=== PATIENT | male | born 1970 | race Caucasian/White ===

== ENCOUNTER → 2016-10-06 | Outpatient (CLI) | payer BC, OTHER ==
[~2016-10-06] VITALS: Ht 180.3 cm; Wt 101.2 kg
[~2016-10-06] MED LIST: ADULT LOW DOSE81 MG PO; AMITRIPTYLINE H10 M1 PO; CHANTIX1 MG PO; ESCITALOPRAM OX20 MG; FISH OIL 1,0001 EAC5 PO; FORTESTA60 GM TD; INDOCIN SR75 MG PO; LYRICA100 MG PO; LYRICA150 MG PO; LYRICA300 MG PO; METHADONE HCL5 MG PO; MULTIVITAMINS PO; NEURONTIN 300300 M1 PO; NEURONTIN600 MG PO; OXYCONTIN; OXYCONTIN PO; OXYCONTIN20 M1 PO; PERCOCET 10-321 EACH; PERCOCET 10-321 EACH PO; PREDNISOLONE 5 M5 M1 PO; TEGRETOL XR100 MG PO
--- NOTE | ~2016-10-06 | HPC ---
[facility] [place] [employer] [address] PAIN MANAGEMENT CONSULTATION Name: MELLO LERMA Room #: REG [facility] M..#: [id number] Admission: 10/06/16 Attend Phys: Ketan Olivier MD Discharge: Date of : 70 Report #: [id number] THIS REPORT FOR: //name// CC: Dee Olivier DATE OF SERVICE: 10/06/2016 DATE OF REGISTRATION: 10/06/2016. Followup visit for intractable headaches and management of high risk medication. This is a followup visit for the patient who is on time for his medication. He was evaluated last on 09/12/2016. He is here today for renewal of medication. He reports that he is doing okay with his medication, continuing to work, pain score is a 5. He has been able to keep at bay the severe brain freeze headaches. We again discussed the interesting phenomena of sound triggering rage. I have asked him to discuss this further with Dr. Day with a followup appointment in the next few days. We have reviewed the CDC guidelines. We have talked about the upper limits of opioids at 90 morphine milligram equivalents. It is well above that at this time, but is willing to make adjustments and we made a couple of suggestions either long or short acting. We are going to reduce his long acting OxyContin from 30 mg b.i.d. to 20 mg b.i.d. and he will continue at the 10/325 oxycodone tablets taken as needed for breakthrough pain around the clock. This reduction will take him from 100 mg of oxycodone to 80 mg, which is a morphine milligram equivalent of 120. This is a substantial over 20% reduction in his MME closer towards the CDC guidelines of 90. He understands that that is our target. We will try to do so and allow him to continue to have him control of his headaches and remain functional at work. I discussed his urine drug screen which was ordered today as well and the terms of that agreement and 2 months of prescriptions were provided for him. We will try and reduce his medication a bit further at the next visit. By: [id number] Ketan Olivier MD /nt
[2016-10-06 13:45] VITALS: BP 126/78
== END ==
LOC: PAIN 07:13
DX: R51 Headache (principal); Z87.891 Personal history of nicotine dependence

== ENCOUNTER → 2016-12-12 | Outpatient (CLI) | payer BC, OTHER ==
[~2016-12-12] VITALS: Ht 180.3 cm; Wt 100.7 kg
[~2016-12-12] MED LIST changes: +OXYCONTIN15 MG PO
--- NOTE | ~2016-12-12 | HPC ---
[facility] [place] [address] PAIN MANAGEMENT CONSULTATION Name: MELLO LERMA Room #: REG [facility] MUmesh.#: [id number] Admission: 12/12/16 Attend Phys: Ketan Olivier MD Discharge: Date of : 70 Report #: [id number] THIS REPORT FOR: //name// CC: Dee Olivier DATE OF SERVICE: 12/12/2016 Followup visit for chronic intractable headaches and management of high risk opioid medication. The patient returns to pain clinic today and continues to do well as we slowly taper his oxycodone. At last visit, we tapered his OxyContin 30 mg b.i.d. to 20 mg b.i.d. and he saw no significant change in his pain. We are going reduce it again today from 20 to 15 mg b.i.d. He also uses breakthrough oxycodone 10/325, which he has been taking now for several years, almost on a schedule. We have been leaving that alone as we taper his long acting drug. We will 50% of his long-acting medication. We will reduce his daily dose of oxycodone by 30 mg over the 6 months. We will continue to try and taper below the CDC guideline of 90 morphine milligram equivalents. With today's prescription, he will be at 105 morphine milligram equivalents. He has noticed that he actually has more energy and is appreciating the ability to reduce his dose of medication slowly or under controlled circumstances. 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 He says, he works up to 50 hours per week. 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 I have encouraged him to continue efforts to quit smoking. He is down to 1/2 pack per day. MEDICATIONS: Reviewed and reconciled, which included in addition to his 105 mg of oxycodone, gabapentin 300 mg 5 times daily, Lexapro 20 mg daily, multivitamins and aspirin. Indomethacin has also been taken, prescribed by primary service. Side effects have been reviewed in the past and reviewed once again today. PHYSICAL EXAMINATION: GENERAL: He is pleasant, alert and oriented, without signs of overmedication, anxiety, depression or anger. VITAL SIGNS: Blood pressure 151/82, heart rate 75, respirations 14. BMI is 31. No obvious signs of his pain generators. Pain intensity is 5/10 today. IMPRESSION: [facility] [address] [place] [address] PAIN MANAGEMENT CONSULTATION Name: MELLO LERMA [id number] Admission: 12/12/16 Attend Phys: Ketan Olivier MD Discharge: Date of : 70 Report #: [id number] 1. 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 2. Management of high risk medications. 3. History of cerebral infarct. PLAN: I renewed his medications at the reduced dose of OxyContin 15 mg b.i.d. and oxycodone 10/325 one tablet 4 times daily and a followup visit is scheduled in 3 months. We will continue to try and taper further at next visit. By: [id number] Ketan Olivier MD /nt
[2016-12-12 08:06] VITALS: BP 151/82
== END | disposition home or self-care (01) ==
LOC: PAIN 06:05
DX: G44.51 Hemicrania continua (principal); F11.20 Opioid dependence, uncomplicated; G89.29 Other chronic pain; F17.210 Nicotine dependence, cigarettes, uncomplicated; Z86.73 Personal history of transient ischemic attack (TIA), and cerebral infarction without residual deficits

== ENCOUNTER → 2017-03-06 | Outpatient (CLI) | payer BC, OTHER | LOC: PAIN 07:05 | DX: R51 Headache (principal); Z86.73 Personal history of transient ischemic attack (TIA), and cerebral infarction without residual deficits ==

== ENCOUNTER → 2017-08-17 | Outpatient (CLI) | payer BC, OTHER ==
[~2017-08-17] VITALS: Ht 180.3 cm; Wt 95.7 kg
[~2017-08-17] MED LIST changes: +ENDOCET 10-3251 EACH PO; +ESCITALOPRAM OX20 MG PO; +INDOMETHACIN SR75 M1 PO; +NARCAN 1MG/ML1 MG/M1 IM; +XTAMPZA ER36 MG PO
--- NOTE | ~2017-08-17 | HPC ---
[facility] [place] [address] PAIN MANAGEMENT CONSULTATION Name: MELLO LERMA Room #: REG [facility] M..#: [id number] Admission: 08/17/17 Attend Phys: Ketan Olivier MD Discharge: Date of : 70 Report #: [id number] THIS REPORT FOR: //name// CC: Dee Olivier DATE OF SERVICE: 08/17/2017 REASON FOR VISIT: Followup visit for severe hemicrania continua, intractable headache. HISTORY OF PRESENT ILLNESS: This is a followup visit for the patient who has now been seeing at the request of Dr. Day for over a year. I prescribed his medications under terms of written opioid agreement. He is currently receiving oxycodone 10/325 six tablets daily, which equates to a morphine equivalency of 19. This is at the top of the CDC guideline. We did focus significantly on function in our clinic. He works 2 jobs, is continuing to work up 60 hours a week. He has 2 children. He is continuing to try and balance his home activities with work and his chronic pain. His pain is unusual and is triggered by sound. He is unable to even go to the movie with his family. He tried to go to the [employer], which was a definite mistake given the high volume and that would be expected in a movie of that sort. Within a short time after entering the movie theater, he had to go back up to the corner and wait until it came back out. I have encouraged him to quit smoking, which I think is contributing to his pain. He continues to do so, however. He denies any significant side effects from his medications. He has been on time for his medications at each visit. He has shown no lost prescriptions. He has had a recent drug screen performed on 12/12/2016, which was appropriate for all medications including gabapentin and citalopram, which were provided for him by Dr. Bean. He has asked me to prescribe this for him now, so that I can then have control of all of his pain medications. He also takes indomethacin 75 mg 3 times daily and he is now down to 1 daily. We talked extensively today about the multiple side effects of nonsteroidal anti-inflammatory drugs particularly indomethacin and needs to be cautious. Follow up with his primary care physician for evaluation of renal function. He has had no dyspepsia. No evidence of GI distress associated with his indomethacin use. Gabapentin is useful. He takes it up to 1500 mg a day in combination with his other medicines. PHYSICAL EXAMINATION: [facility] [address] [place] [address] PAIN MANAGEMENT CONSULTATION Name: MELLO LERMA [id number] Admission: 08/17/17 Attend Phys: Ketan Olivier MD Discharge: Date of : 70 Report #: [id number] GENERAL: On physical exam, he is pleasant, alert and oriented, shows no signs of overmedication. His affect is always a bit dour. VITAL SIGNS: Pupils are equal, round and react to light. EOMs are intact. He has poor oral hygiene. He has occipital tenderness and tenderness also in the temporal region. IMPRESSION: 1. Chronic intractable headache. Hemicrania continua diagnosed by Dr. Senthil Bean following a cerebrovascular accident. 2. Management of opioid medications under opioid agreement and high risk medication agreement. PLAN: I provided him with his medication, oxycodone 10/325 six tablets daily. We will follow up in the pain clinic in 3 months. I have also renewed today for him escitalopram 20 mg 1 tablet daily; gabapentin 300 mg five tablets daily, 1 in the morning, 1 at noon and 3 at bedtime to aid with sleep and indomethacin SR 75 mg 1 tablet daily with precautions regarding GI, renal and cardiac side effects. Followup visit planned in 3 months. <ELECTRONICALLY SIGNED> By: Ketan Olivier MD 09/06/17 1640 [id number] Ketan Olivier MD /nt
[2017-08-17 13:57] VITALS: BP 121/76
== END ==
LOC: PAIN 06:57
DX: G43.919 Migraine, unspecified, intractable, without status migrainosus (principal); G44.51 Hemicrania continua; F11.90 Opioid use, unspecified, uncomplicated

== ENCOUNTER → 2018-06-07 | Outpatient (CLI) | payer BC, OTHER ==
[~2018-06-07] VITALS: Ht 180.3 cm; Wt 93.3 kg
[~2018-06-07] MED LIST changes: +INDOMETHACIN SR75 MG PO
--- NOTE | ~2018-06-07 | HPC ---
[facility] [address] [place] [address] PAIN MANAGEMENT CONSULTATION Name: MELLO LERMA Room #: REG [facility].#: [id number] Admission: 06/07/18 Attend Phys: Dena Conn Discharge: Date of : 70 Report #: [id number] THIS REPORT FOR: //name// CC: Dena VALERIO Physician staff DATE OF SERVICE: 06/07/2018 REASON FOR THE VISIT: For followup visit for his chronic intractable headaches, hemicrania continua and management of high risk opioid medications. HISTORY OF PRESENT ILLNESS: The patient returns today to the pain clinic for a refill of his opioid medication. 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 He tells me that his pain score is a 7/10, worse with noise, better with his medication, dark environment, quietness. His pain is located on the right side of his head, feels like a brain freeze; that is how he describes it. The patient denies constipation or daytime somnolence. He would like a refill of his current medications. ALLERGIES: PENICILLIN. CURRENT LIST OF MEDICATIONS: Indomethacin 75 twice a day, oxycodone 10/325 up to 6 tablets a day, gabapentin 300 mg 1 in the morning, 1 midday, 3 at night; escitalopram 20 mg daily, aspirin 81 mg daily, and a multivitamin. PQRS: 1. The patient denies osteoarthritis or rheumatoid arthritis. 2. Height is 5 feet 11 inches, weight 205, BMI is 28.7. 3. Vital signs: Blood pressure 124/82, pulse is 68, respirations 16, oxygen sat is 100%. 4. Pain score is 7. 5. The patient denies dizziness, does not need help walking or standing. He has not fallen in the last 3 months. 6. He has a blood thinner of aspirin. No history of hypertension. 7. His opioid therapy greater than 6 weeks, therefore an opioid signed contract is on the chart. His risk assessment tool is low and his functional assessment is . His recreational drug use, he denies. He does smoke tobacco every day and does not drink alcohol. We did check the [facility] prescription monitoring system. The patient is filling appropriately from Dr. Olivier with no aberrant behavior noted. He is filling at one pharmacy. There is a recent drug screen on the chart that was appropriate. The patient tells me he does safeguard his medications. PHYSICAL EXAMINATION: [facility] [address] [place] [address] PAIN MANAGEMENT CONSULTATION Name: MELLO LERMA Room #: REG [facility].#: [id number] Admission: 06/07/18 Attend Phys: Dena Conn Discharge: Date of : 70 Report #: [id number] GENERAL: This is a well-developed, well-nourished, appears his stated age gentleman. He is alert and oriented. His affect is appropriate. HEENT: He has no discomfort or tenderness at the temporal area or occipital, feels that it feels like a brain freeze inside when it occurs. It is not necessarily constant all the time. His pupils are equal, round, reactive to light. Extraocular movements are intact. NECK: No JVD or adenopathy. IMPRESSION: 1. Chronic intractable headache, history of cerebrovascular accident in 1998 with longstanding hemicrania continua. 2. Management of high risk medication under the terms of opioid agreement. PLAN: 1. The patient is here for refill of his medication today. We did discuss a letter that was received from the insurance company regarding his indomethacin use and his history of CVA. The patient tells me that this is working fine for him and helping with relieving his pain. I told him that there is a risk of patients that have had past CVAs and taking nonsteroidal anti-inflammatories. We did discuss taking the medication every other day or decreasing to a lower dose. I am sure the risk would still be there even at a lower dose. The patient tells me he wishes to continue, understands the risk, he will try to take it every other day from now on because he does have great benefit from that medication. 2. We discussed his oxycodone 10/325. The patient thinks it is very beneficial. We have tried long acting narcotics and insurance would not pay for them, so we have switched him back to his oxycodone 10/325. The patient gets good relief from his 6 tablets a day. Script was given for 180 for today and again in 4 weeks. 3. The patient falls within 90 MME that the [facility] has set, therefore he is being seen on 2-month intervals from now on. The patient understands this plan of care and will make an appointment for 2 months. Scripts also given today, gabapentin 300 mg, the patient takes one in the morning, one midday and 3 at night, quantity 450, which is a 90-day supply with one additional refill; indomethacin 75 mg 1 daily, quantity 90 with one additional refill given. He did not need his antidepressant refilled today, it has refills. The patient will be seen in 2 months' time. The patient was seen today in collaboration with Dr. Ketan Olivier. <ELECTRONICALLY SIGNED> By: Dena Conn 06/08/18 1004 [id number] [id number] Dena mcmahan
[2018-06-07 09:18] VITALS: BP 124/82
== END ==
LOC: PAIN 08:47
DX: G44.51 Hemicrania continua (principal); Z79.891 Long term (current) use of opiate analgesic; Z86.73 Personal history of transient ischemic attack (TIA), and cerebral infarction without residual deficits

== ENCOUNTER → 2018-07-26 | Outpatient (CLI) | payer BC, OTHER ==
[~2018-07-26] VITALS: Ht 180.3 cm; Wt 94.1 kg
[~2018-07-26] MED LIST changes: +CHANTIX0.5 MG PO
[2018-07-26 10:06] VITALS: BP 126/80
--- NOTE | 2018-07-26 10:07 | NUR ---
Pain Clinic Assessment: 1. History of Osteoarthritis: History of Rheumatoid Arthritis: 2. Height: 5 ft. 11 in. 180.3 cm. Weight: 207.4 lb. oz. 94.076 kg. Patient's BMI: 28.9 3. Vital Signs: BP: 126/80 Pulse: 65 Resp: 18 Temp: 02 Sat: 99 ECG Mon: 4. Pain Intensity: 6 5. Fall Risk: Dizziness: N Needs help standing or walking: N Fallen in the last 3 months: N Fall risk comments: 6. Patient on Blood Thinner: None 7. History of Hypertension: N 8. Opioid Therapy greater than 6 weeks: Y Opiate Contract Signed: 10/06/16 9. Risk Assessment Tool Provided: Opioid Risk Tool 10. Functional Assessment Tool: 29 11. Recreational Drug Use: Never Drug Type: Tobacco Use: Former Smoker Tobacco Type: Amount or Packs/day: How Many Years: Alcohol Use: No Frequency: Quant:
--- NOTE | 2018-07-26 16:05 | HPC ---
[facility] [address] [place] [address] [place] [address] PAIN MANAGEMENT CONSULTATION Name: MELLO LERMA Room #: REG CLJose Cruz [facility].#: [id number] Admission: 07/26/18 Attend Phys: Dena Conn Discharge: Date of : 70 Report #: [id number] THIS REPORT FOR: //name// CC: Dena Conn TRAVIS VALERIO DATE OF SERVICE: 07/26/2018 CHIEF COMPLAINT: Chronic intractable headaches. HISTORY OF PRESENT ILLNESS: The patient returns to the pain clinic today for refill of his opioid medications. He tells me that the pain medicines have been helpful in controlling his chronic headaches and head pain. He does tell me that he had a left arm tennis elbow repair 2 weeks ago and his arm is in a sling today for that. He said he has no pain though in his arm. He is doing physical therapy and home therapy from that surgery and he will return to work on this Monday. He denies any constipation and any daytime sleepiness. He just needs a refill of his oxycodone and no other refills are due today of his other medications. ALLERGIES: PENICILLIN. CURRENT LIST OF MEDICATIONS: Chantix daily, gabapentin 300 mg 5 pills a day, indomethacin 75 mg p.r.n., oxycodone 10/325 every 4 hours, Narcan syringe as needed, escitalopram 20 mg daily, aspirin 81 mg daily and multivitamin daily. PQRS: 1. He denies history of osteoarthritis or rheumatoid arthritis. 2. Height is 5 feet 11 inches, weight is 207 and BMI is 28.9. 3. Vital signs: Blood pressure 120/80, pulse is 65, respirations 18 and oxygen sat is 99. 4. Pain score 6/10. 5. Fall risk. Denies dizziness, does not need help walking or standing, has not fallen in the last 3 months. 6. He is not on any blood thinners and denies hypertension medicines. 7. Opioid therapy is greater than 6 weeks; therefore, an opioid signed contract is on the chart. 8. Risk assessment tool is low. His functional assessment is . 9. Recreational drug use, he denies. He is a former smoker, on Chantix currently and denies any alcohol use. We checked the prescription monitoring system. He is slightly early for his appointment today, but we know his prior authorization for his medications is about to , trying to get to fill before then. He did filll tramadol from his surgeon for his elbow surgery; otherwise, every other medication is appropriate from our doctors. There is a recent drug screen on the chart and [address] [address] PAIN MANAGEMENT CONSULTATION Name: MELLO LERMA Room #: REG [facility] Powell#: [id number] Admission: 07/26/18 Attend Phys: Dena Conn Discharge: Date of : 70 Report #: [id number] his MME per the CDC guidelines is 75. Therefore, he is seen every 2 months in the clinic. PHYSICAL EXAMINATION: GENERAL: This is a well-developed, well-nourished gentleman that appears his stated age. He is alert and orientated and his affect is appropriate. HEENT: He has no tenderness presently in his temporal area or occipital area, does complain of brain freeze when he does complain of pain. His pupils are reactive to light. Normocephalic and atraumatic. Mucous membranes are moist and hearing is adequate. NECK: Without JVD or adenopathy. MUSCULOSKELETAL: His left arm is in a sling today from his recent surgery. Able to move hands without difficulty. Lower extremity strength judged to be 5/5 bilateral in all major muscle groups. We reviewed the fact that opiate medications are being used to provide analgesia adequate to support activities of daily living, not attempting to achieve a specific pain score on the 0-10 Visual Analog Scale. The current opiate medications are providing sufficient analgesia to allow the patient to participate in activities of daily living. The patient is not exhibiting any aberrant behavior suggestive of drug diversion. The patient is not having any adverse reactions to medications. The patient is not suffering from daytime somnolence or mental acuity changes. The patient is managing opiate-induced constipation with appropriate [id number] agents and dietary considerations. The patient was counseled on concern for caution with operating a motor vehicle while using opiate medications. A physical exam was performed and the patient's functional status was evaluated. All patients with back pain were advised against the bed rest greater than 4 days and were advised to return to normal activities. Pain score assessment was noted and the treatment plan was reviewed with the patient. All current medications, both prescribed and OTC were reviewed and reconciled on the electronic medical record. Tobacco screening was accomplished and smoking cessation was advised when indicated. BMI was noted and diet/exercise modification was recommended for all patients following outside normal parameters. I reviewed with the patient today their responsibilities to safeguard prescription medications, reviewed their responsibility to utilize medications only as prescribed by the physician. They are to seek and receive pain medications only from 1 physician group ([facility]). They are to use 1 pharmacy and keep the clinic informed if they change pharmacies. Their responsibilities include making followup visits in a timely fashion and to avoid abrupt discontinuation of medication usage. Their responsibilities further include bringing their medications (bottles from the pharmacy with residual pills) to the visit for possible confirmation of pill counts and the patient [address] [place] [address] PAIN MANAGEMENT CONSULTATION Name: MELLO LERMA Room #: REG [facility]..#: [id number] Admission: 07/26/18 Attend Phys: Dena Conn Discharge: Date of : 70 Report #: [id number] understands it is their responsibility to submit to random drug screens to ensure both that the medications prescribed are present, and that no other controlled substances are present. All prescriptions provided today were generated electronically. IMPRESSION: 1. Chronic intractable headache. History of cerebrovascular accident in 1998 with longstanding hemicrania continua. 2. Management of high risk medications under terms of our written opioid agreement. 3. Recent tennis elbow repair. PLAN: 1. The patient to return to the pain clinic today for refill of his medications. We did discuss treatment options. This gentleman requires prior authorization on his oxycodone, which his insurance company allows him every 2 months and we need to do another prior authorization for him. His current prior authorization set to on 08/03/2018; therefore, I will release his medicines to be filled on 08/02/2018, allowing him to have 2 months of fills with this prior authorization. The next prescription will be due in 5 weeks' time and will be released then. The patient verbalizes understanding since this one will be 1 week or early since his last fill was on 07/09/2018. Scripts given today for 180 pills with 1 refill in 5 weeks of his oxycodone 10/325. 2. The patient does not need any refills of his gabapentin, indomethacin at this appointment. Those will be needing to be refilled in his next visit. 3. The patient seen in collaboration today with Dr. Ketan Olivier. <ELECTRONICALLY SIGNED> By: Dena Conn 07/26/18 1605 1040 [id number] Dena Conn /nt
== END ==
LOC: PAIN 06:56
DX: G89.4 Chronic pain syndrome (principal); R51 Headache; Z86.73 Personal history of transient ischemic attack (TIA), and cerebral infarction without residual deficits; Z79.891 Long term (current) use of opiate analgesic

== ENCOUNTER → 2018-09-20 | Outpatient (CLI) | payer BC, OTHER ==
[~2018-09-20] VITALS: Ht 180.3 cm; Wt 93.0 kg
[~2018-09-20] MED LIST changes: +OXYCONTIN30 MG PO; +PERCOCET 10-321 EAC1 PO; +XTAMPZA ER27 MG PO
--- NOTE | ~2018-09-20 | HPC ---
[facility] [address] [place] [address] PAIN MANAGEMENT CONSULTATION Name: MELLO LERMA Room #: REG [facility].#: [id number] Admission: 09/20/18 ������������������ Attend Phys: Ketan Olivier MD Discharge: ������������������ Date of : 70 Report #: [id number] THIS REPORT FOR: //name// CC: TRAVIS Olivier DATE OF SERVICE: 09/20/2018 Followup visit for severe intractable headache. The patient is in the clinic today for medication renewal. He always has a bit of a dark affect and today is no different. His mood seems dark. He scores his pain as a 25/10, despite the 60 mg of oxycodone he takes daily. He describes his pain as an ice cream headache. For those, less of experience, this brain freeze is a miserable sensation and if this is truly what he is feeling on a chronic basis, I understand his dark affect. 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 Severe headaches that does not go away. We have been able to give him some relief with the opioid medication, but I had not been able to reduce his medication, morphine milligram equivalents below 90. I was not willing to do so today. There is also a cost issue for him. We talked about switching him to OxyContin today and this would provide him with around the clock and a steady release medication. 30 mg twice a day would be exactly what he is taking; however, with a time release effects, so he will not be clock watching in taking his medications. MEDICATIONS: Include OxyContin 10/325 six tablets daily 1 every 3 hours, gabapentin 300 mg t.i.d., indomethacin 75 mg daily, naloxone, Lexapro, aspirin, multivitamins. ALLERGIES: None. PAST MEDICAL HISTORY: Otherwise, unremarkable. He did have a spinal fusion in 1985. SOCIAL HISTORY: He denies tobacco use. Two children, 13 and 11. 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 PHYSICAL EXAMINATION: MOOD: Dark affect. VITAL SIGNS: Blood pressure 134/86, heart rate 72, respirations 16, O2 sat 97, BMI 28.6. HEENT: Pupils equal, round, react to light. EOMs are intact. Mucous membranes [facility] [address] [place] [address] PAIN MANAGEMENT CONSULTATION Name: MELLO LERMA Room #: REG [facility].#: [id number] Admission: 09/20/18 ������������������ Attend Phys: Ketan Olivier MD Discharge: ������������������ Date of : 70 Report #: [id number] are moist. He has several dental caries. IMPRESSION: 1. Chronic intractable headaches with hemicrania continua. 2. Management of high risk medications. RECOMMENDATIONS: I will continue his medications and he has an appointment with Dr. Day on Monday. I am anxious to see if Dr. Day can suggest some co-analgesic medication. I talked to him today about perhaps starting him back on Topamax, it has been a number of years since he was on it. I will, however, wait before adding another medication and we will try and reach Dr. Day to discuss his care. ��������������������������������������������� ���������������������������������������� By: ��������������������������������������������� 1719 [id number] Ketan Olivier MD /nt
[2018-09-20 12:53] VITALS: BP 134/86
--- NOTE | 2018-09-20 13:02 | NUR ---
Pain Clinic Assessment: 1. History of Osteoarthritis: NONE History of Rheumatoid Arthritis: NONE 2. Height: 5 ft. 11 in. 180.3 cm. Weight: 205.0 lb. oz. 92.988 kg. Patient's BMI: 28.6 3. Vital Signs: BP: 134/86 Pulse: 72 Resp: 16 Temp: 02 Sat: 97 ECG Mon: 4. Pain Intensity: 25 5. Fall Risk: Dizziness: N Needs help standing or walking: N Fallen in the last 3 months: N Fall risk comments: 6. Patient on Blood Thinner: None 7. History of Hypertension: N 8. Opioid Therapy greater than 6 weeks: Y Opiate Contract Signed: 10/06/16 9. Risk Assessment Tool Provided: Opioid Risk Tool 10. Functional Assessment Tool: 29 11. Recreational Drug Use: Never Drug Type: Tobacco Use: Former Smoker Tobacco Type: Amount or Packs/day: How Many Years: Alcohol Use: No Frequency: Quant:
--- NOTE | 2018-09-20 14:00 | NUR ---
AT THE END OF PT OFFICE VISIT FOR PAIN MANAGEMENT, PT REFERENCED HE WOULD LIKE TO GO AHEAD AND GET THE PAMPHLET I SPOKE OF EARLIER. I ASKED THE PT TO CLARIFY, AND HE STATED "THE ONE ABOUT HURTING MYSELF." I TOLD THE PT I WOULD GET HIM THE INFO. I SPOKE WITH PT DR Bel MON, AND HE CAME BACK INTO THE ROOM TO SPEAK WITH PT ABOUT HOW HE WAS FEELING. PT STATES HE DOES NOT FEEL SAD HE JUST HATES THE PAIN. PT STATES HE IS GOING TO SEE HIS NEUROLOGIST ON 09/25/18 ABOUT A POSSIBLE NEW TREATMENT OPTION. DR SMITH SAID HE WOULD CALL DR CERVANTES TODAY AND CONFRENCE ABOUT ADJUNCTIVE THERAPIES THAT MAY BE BENEFICIAL TO PT. SPOKE WITH PT THAT THERE IS STILL HOPE AND THAT NEW TECHNIQUES AND ADVANCES ARE OUT THERE. PT DECLINED TO TAKE ANY OTHER INFO AT THIS TIME FOR ANY TREATMENT CENTERS AFTER SPEAKING WITH SARAH.
== END ==
LOC: PAIN 07:01
DX: G44.51 Hemicrania continua (principal); Z79.899 Other long term (current) drug therapy

== ENCOUNTER → 2018-10-15 | Outpatient (CLI) | payer BC, OTHER ==
[~2018-10-15] VITALS: Ht 180.3 cm; Wt 92.9 kg
--- NOTE | ~2018-10-15 | HPC ---
[facility] [place] [address] PAIN MANAGEMENT CONSULTATION Name: MELLO LERMA Room #: REG [facility] MHi.#: [id number] Admission: 10/15/18 ������������������ Attend Phys: Ketan Olivier MD Discharge: ������������������ Date of : 70 Report #: [id number] THIS REPORT FOR: //name// CC: TRAVIS Olivier DATE OF SERVICE: 10/15/2018 Followup visit for severe daily intractable headache. The patient is here today in clinic to discuss the changes in medication that occurred at the last visit. We have transitioned him for insurance reasons to Xtampza extended release capsules. These abuse-deterrent long-acting OxyContin tablets are preferable on his insurance plan. He was spending up to $200 per month for his oxycodone 10/325 despite the fact that they are generic. The opioid crisis is changing how we prescribe even to patients who have been stable. From a pragmatic standpoint, the oxycodone has been the most helpful medication that the patient has used over the long course of his chronic headache pain. I reviewed his records today and found that he has had multiple trials of medications including several anti-seizure medications for migraine headaches, antidepressants, anti-inflammatories and others. He has even had prednisone and other steroids, yet we keep coming back to the use of an opioid to provide the best relief. If we look at function, we focus primarily on work and family. 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 His children, who are under the age of 5 when we first met him, are now in their teenage years and he is, by report, actively involved in their life and in home life. When the pain is severe, he is unable to accomplish any of these goals. He denies any significant side effects from his medication. We have continued to follow his medication use on the prescription drug monitoring Program from [facility] and there have been no unexpected entries. He did receive a short prescription for tramadol, which we discussed around the first of the year taken for dental issues. All medications were reviewed and reconciled today. He will be started on new medication by Dr. Day, who he saw last week for the first time in some months. It is an injection and I look forward to finding out from Dr. Day's note what medication he has chosen for [place] [address] PAIN MANAGEMENT CONSULTATION Name: MELLO LERMA Room #: REG [facility].#: [id number] Admission: 10/15/18 ������������������ Attend Phys: Ketan Olivier MD Discharge: ������������������ Date of : 70 Report #: [id number] We discussed his previous drug screens at one point showing marijuana. Marijuana now being prescribed in multiple states for medicinal purposes. He reports that marijuana has in the past had medicinal effects for him, typically used at night, and has an opioid sparing effect. If it were available now in the state of [place] or [place] for me to prescribe, he would find it as a suitable alternative to his opioid medication and he feels that he would be able to use it to reduce his daily oxycodone. Substituting one medication for another, particularly controlled substances, may not be the best; however, he feels that the control that he receives from his prior use of marijuana for headache pain is better than that that he receives from any other substance including the opioids. When we are able to prescribe marijuana in a controlled fashion in the state of [place], I told him that I would be willing to do so, but at this point, I am unable to prescribe nor recommend it. PHYSICAL EXAMINATION: VITAL SIGNS: Today, his blood pressure is 115/69, heart rate 58, respirations 16. HEENT: His pupils are equal, round, reactive to light. EOMs are intact. Mucous membranes are moist. Multiple dental caries. GENERAL: He appears tired to me, he has bags under his eyes. IMPRESSION: 1. Chronic intractable daily headache with hemicrania continua. 2. Management of high risk medication. PLAN: 1. We will stop take Xtampza and place him back on oxycodone 10/325 for 1 to 2 months. 2. Consider reinitiating Xtampza at a lower dose and then providing 1-2 breakthrough oxycodone tablets, which work better in situation where the pain is more intense. 3. Follow up with Dr. Senthil Day for additional headache ideas. ��������������������������������������������� ���������������������������������������� By: ��������������������������������������������� [id number] 0457 Ketan Olivier MD /nt
[2018-10-15 12:40] VITALS: BP 115/69
--- NOTE | 2018-10-15 12:45 | NUR ---
Pain Clinic Assessment: 1. History of Osteoarthritis: NONE History of Rheumatoid Arthritis: NONE 2. Height: 5 ft. 11 in. 180.3 cm. Weight: 204.8 lb. oz. 92.897 kg. Patient's BMI: 28.6 3. Vital Signs: BP: 115/69 Pulse: 58 Resp: 16 Temp: 02 Sat: 97 ECG Mon: 4. Pain Intensity: 7 5. Fall Risk: Dizziness: N Needs help standing or walking: N Fallen in the last 3 months: N Fall risk comments: 6. Patient on Blood Thinner: None 7. History of Hypertension: N 8. Opioid Therapy greater than 6 weeks: Y Opiate Contract Signed: 10/06/16 9. Risk Assessment Tool Provided: Opioid Risk Tool 10. Functional Assessment Tool: 29 11. Recreational Drug Use: Never Drug Type: Tobacco Use: Former Smoker Tobacco Type: Amount or Packs/day: How Many Years: Alcohol Use: No Frequency: Quant:
== END ==
LOC: PAIN 06:54
DX: G44.51 Hemicrania continua (principal); G89.29 Other chronic pain; Z79.899 Other long term (current) drug therapy

== ENCOUNTER → 2018-12-13 | Outpatient (CLI) | payer BC, OTHER ==
[~2018-12-13] VITALS: Ht 180.3 cm; Wt 90.7 kg
[2018-12-13 09:40] VITALS: BP 136/89
--- NOTE | 2018-12-13 09:43 | NUR ---
Pain Clinic Assessment: 1. History of Osteoarthritis: Not Applicable History of Rheumatoid Arthritis: Not Applicable 2. Height: 5 ft. 11 in. 180.3 cm. Weight: 200.0 lb. oz. 90.720 kg. Patient's BMI: 27.9 3. Vital Signs: BP: 136/89 Pulse: 68 Resp: 16 Temp: 02 Sat: 96 ECG Mon: 4. Pain Intensity: 5 5. Fall Risk: Dizziness: N Needs help standing or walking: N Fallen in the last 3 months: N Fall risk comments: 6. Patient on Blood Thinner: None 7. History of Hypertension: N 8. Opioid Therapy greater than 6 weeks: Y Opiate Contract Signed: 12/13/18 9. Risk Assessment Tool Provided: low-0 10. Functional Assessment Tool: 35/70 11. Recreational Drug Use: Current within past 3 mos Drug Type: marajuana Tobacco Use: Current Every Day Smoker Tobacco Type: Cigarettes Amount or Packs/day: 1 pack How Many Years: 20 Alcohol Use: No Frequency: Quant:
== END ==
LOC: PAIN 06:49
DX: R51 Headache (principal)

== ENCOUNTER → 2019-02-04 | Outpatient (CLI) | payer BC, OTHER ==
[~2019-02-04] VITALS: Ht 180.3 cm; Wt 88.9 kg
[2019-02-04 14:16] VITALS: BP 114/78
--- NOTE | 2019-02-04 14:25 | NUR ---
Pain Clinic Assessment: 1. History of Osteoarthritis: Not Applicable History of Rheumatoid Arthritis: Not Applicable 2. Height: 5 ft. 11 in. 180.3 cm. Weight: 196.0 lb. oz. 88.905 kg. Patient's BMI: 27.3 3. Vital Signs: BP: 114/78 Pulse: 63 Resp: 16 Temp: 02 Sat: 97 ECG Mon: 4. Pain Intensity: 3 5. Fall Risk: Dizziness: N Needs help standing or walking: N Fallen in the last 3 months: N Fall risk comments: 6. Patient on Blood Thinner: None 7. History of Hypertension: N 8. Opioid Therapy greater than 6 weeks: Y Opiate Contract Signed: 12/13/18 9. Risk Assessment Tool Provided: low-0 10. Functional Assessment Tool: 35/70 11. Recreational Drug Use: Current within past 3 mos Drug Type: Tobacco Use: Current Every Day Smoker Tobacco Type: Cigarettes Amount or Packs/day: 0.5 How Many Years: 30 Alcohol Use: No Frequency: Quant:
--- NOTE | 2019-02-05 13:44 | HPC ---
[facility] [address] [place] [address] PAIN MANAGEMENT CONSULTATION Name: MELLO LERMA Room #: REG CL MHi.#: [id number] Admission: 02/04/19 ������������������ Attend Phys: Dena Conn Discharge: ������������������ Date of : 70 Report #: [id number] THIS REPORT FOR: //name// CC: Dena Conn TRAVIS VALERIO DATE OF SERVICE: 02/04/2019 CHIEF COMPLAINT: Severe chronic daily intractable headaches. HISTORY OF PRESENT ILLNESS: This patient returns to the pain clinic today for refill of his medications. He tells me that his pain score is 3/10 today. He said at the moment he feels better, but throughout the day can go to 10. He feels like he has an "ice cream brain freeze" on the right side of his head. Things that bother him are noise, weather, just turning his head sometimes. The medications he finds are very helpful as well as dark rooms and quiet environment are helpful. He tells me he does not suffer from any constipation with this medication or daytime sleepiness. He occasionally takes less gabapentin than his 5 pills a day and still finds them beneficial. He would like a refill of his medications today. ALLERGIES: PENICILLIN. CURRENT LIST OF MEDICATIONS: Percocet 10/325 up to 6 tablets a day, indomethacin 75 mg daily, escitalopram 20 mg daily, gabapentin 300 mg 3 times a day, naloxone as needed, aspirin 81 mg and multivitamin. PQRS: 1. The patient does not have any rheumatoid arthritis or osteoarthritis. 2. Height is 5 feet 11 inches, weight is 196, BMI is 27. 3. Blood pressure 114/78, pulse is 63, respirations 16, oxygen sat is 97. 4. Pain score is 3/10. 5. Fall risk: Denies dizziness, does not need help walking or standing, has not fallen in the last 3 months. The patient is not on any blood thinners and does not take medicine for hypertension. 6. Opioid therapy is greater than 6 weeks; therefore, an opioid signed contract is on the chart. Risk assessment tool is low. Functional assessment is 35/70. 7. Recreational drug use in the past. He is currently a smoker about half a pack a day and does not drink alcohol. According to the prescription monitoring system, the patient is filling appropriately for his medications and is due for them to be filled on Monday. There is a drug screen on the chart and we will recheck that at the next visit. PHYSICAL EXAMINATION: GENERAL: This is a well-developed, well-nourished [place] [address] PAIN MANAGEMENT CONSULTATION Name: MELLO LERMA Room #: REG [facility].#: [id number] Admission: 02/04/19 ������������������ Attend Phys: Dena Conn Discharge: ������������������ Date of : 70 Report #: [id number] stated age, placing his current pain score today at 3/10 today. He is more upbeat than previous visits. HEENT: Pupils equal, round and reactive to light. Complains of called "brain freeze." Mucous membranes are moist. Hearing is adequate. Multiple dental caries. MUSCULOSKELETAL: Does not complain of any back or leg pain. We reviewed the fact that opiate medications are being used to provide analgesia adequate to support activities of daily living, not attempting to achieve a specific pain score on the 0-10 Visual Analog Scale. The current opiate medications are providing sufficient analgesia to allow the patient to participate in activities of daily living. The patient is not exhibiting any aberrant behavior suggestive of drug diversion. The patient is not having any adverse reactions to medications. The patient is not suffering from daytime somnolence or mental acuity changes. The patient is managing opiate-induced constipation with appropriate [id number] agents and dietary considerations. The patient was counseled on concern for caution with operating a motor vehicle while using opiate medications. A physical exam was performed and the patient's functional status was evaluated. All patients with back pain were advised against the bed rest greater than 4 days and were advised to return to normal activities. Pain score assessment was noted and the treatment plan was reviewed with the patient. All current medications, both prescribed and OTC were reviewed and reconciled on the electronic medical record. Tobacco screening was accomplished and smoking cessation was advised when indicated. BMI was noted and diet/exercise modification was recommended for all patients following outside normal parameters. I reviewed with the patient today their responsibilities to safeguard prescription medications, reviewed their responsibility to utilize medications only as prescribed by the physician. They are to seek and receive pain medications only from 1 physician group ( [facility]). They are to use 1 pharmacy and keep the clinic informed if they change pharmacies. Their responsibilities include making followup visits in a timely fashion and to avoid abrupt discontinuation of medication usage. Their responsibilities further include bringing their medications (bottles from the pharmacy with residual pills) to the visit for possible confirmation of pill counts and the patient understands it is their responsibility to submit to random drug screens to ensure both that the medications prescribed are present, and that no other controlled substances are present. All prescriptions provided today were generated electronically. IMPRESSION: 1. 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 2. Management of high risk medications. [facility] [address] [place] [address] PAIN MANAGEMENT CONSULTATION Name: MELLO LERMA Room #: REG [facility]#: [id number] Admission: 02/04/19 ������������������ Attend Phys: Dena Conn Discharge: ������������������ Date of : 70 Report #: [id number] PLAN: 1. We discussed treatment options with the patient today. The patient tells me that he is doing reasonably well on his oxycodone 10/325 up to 6 tablets a day. Scripts given for #180 for release today and 4 weeks. 2. He does not need any gabapentin today. 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 3. Indomethacin 75 mg, #30 with one additional refill and escitalopram 20 mg, #30 with one additional refill were also given today. 4. We will check a urine drug screen in the next visit since it has been greater than one year. 5. The patient seen in collaboration with Dr. Ketan Olivier. ��������������������������������������������� <ELECTRONICALLY SIGNED> ���������������������������������������� By: Dena Conn ��������������������������������������������� 02/05/19 1344 [id number] Dena Conn /adonay
== END ==
LOC: PAIN 08:41
DX: G44.51 Hemicrania continua (principal); G89.4 Chronic pain syndrome; Z88.0 Allergy status to penicillin; Z79.899 Other long term (current) drug therapy

== ENCOUNTER → 2019-03-28 | Outpatient (CLI) | payer BC, OTHER ==
[~2019-03-28] VITALS: Ht 180.3 cm; Wt 85.6 kg
[2019-03-28 13:33] VITALS: BP 116/78
--- NOTE | 2019-03-28 13:53 | NUR ---
Pain Clinic Assessment: 1. History of Osteoarthritis: Not Applicable History of Rheumatoid Arthritis: Not Applicable 2. Height: 5 ft. 11 in. 180.3 cm. Weight: 188.8 lb. oz. 85.639 kg. Patient's BMI: 26.3 3. Vital Signs: BP: 116/78 Pulse: 65 Resp: 16 Temp: 02 Sat: 97 ECG Mon: 4. Pain Intensity: 5 5. Fall Risk: Dizziness: N Needs help standing or walking: N Fallen in the last 3 months: N Fall risk comments: 6. Patient on Blood Thinner: None 7. History of Hypertension: N 8. Opioid Therapy greater than 6 weeks: Y Opiate Contract Signed: 12/13/18 9. Risk Assessment Tool Provided: low-0 10. Functional Assessment Tool: 35/70 11. Recreational Drug Use: Current within past 3 mos Drug Type: Tobacco Use: Current Every Day Smoker Tobacco Type: Amount or Packs/day: How Many Years: Alcohol Use: No Frequency: Quant:
--- NOTE | 2019-04-02 11:36 | HPC ---
[facility] [address] [place] [address] PAIN MANAGEMENT CONSULTATION Name: MELLO LERMA Room #: REG [facility] [place].#: [id number] Admission: 03/28/19 ������������������ Attend Phys: Dena Conn Discharge: ������������������ Date of : 70 Report #: [id number] THIS REPORT FOR: //name// CC: Dena VALERIO Physician staff DATE OF SERVICE: 03/28/2019 CHIEF COMPLAINT: Chronic daily intractable headaches. HISTORY OF PRESENT ILLNESS: This is a 48-year-old gentleman who returns to the Pain Clinic today for refill of his medications that he uses to help treat his ongoing chronic intractable headaches. He reports a pain score of 5/10 today stating that he has his constant "brain freeze" that the medications keep it at bay, noise and weather changes do irritate it, being in a dark room and quiet and his medications find very beneficial. He would like refills of his medication today. The patient tells me that he has been experiencing some weight loss. He currently weighs today 188 pounds, down from 203 a year ago at this time. He has had recent lab work that was within normal ranges and Hemoccult, which was normal. He is scheduled to have a colonoscopy soon to see if he they can determine why he is losing weight. I did question the patient if he is having any blood in his stool or GI upset. He tells me he has not. He does take indomethacin, which we did warn him with GI complications. ALLERGIES: PENICILLIN. CURRENT LIST OF MEDICATIONS: Oxycodone 10/325 up to 6 tablets a day, escitalopram 20 mg daily, indomethacin 75 mg daily p.r.n., gabapentin 300 mg one in the morning, one midday and three at night, aspirin, and multivitamin. PQRS: 1. He does not have any rheumatoid arthritis or osteoarthritis. 2. Height is 5 feet 11 inches, weight is 188, BMI is 26. 3. Vital signs 116/78, pulse is 65, respirations 16, oxygen sat is 97. 4. Pain score is 5/10. 5. Denies dizziness, does not need help walking or standing, has not fallen in the last 3 months. 6. The patient is not on any blood thinners and does not take medicine for hypertension. 7. Opioid therapy is greater than 6 weeks; therefore, an opioid signed contract is on the chart. Risk assessment tool is low. Functional assessment is 37/70. 8. Recreational drug use in the past. He is a current tobacco smoker and [place] [address] PAIN MANAGEMENT CONSULTATION Name: MELLO LERMA Room #: REG CLJose Cruz Powell#: [id number] Admission: 03/28/19 ������������������ Attend Phys: Dena Conn Discharge: ������������������ Date of : 70 Report #: [id number] According to the prescription monitoring system, the patient is due to fill his medications in a week. We will check a random drug screen on him on the next visit. PHYSICAL EXAMINATION: GENERAL: This is a well-developed, well-nourished gentleman who appears his stated age, placing his current pain score at 5/10 today. HEENT: Pupils equal, round and reactive to light. Has a brain freeze headache in the left temporal area. Mucous membranes are moist. Hearing is adequate. ABDOMEN: Denies any tenderness or constipation issues. MUSCULOSKELETAL: Does not complain of back or leg pain. We reviewed the fact that opiate medications are being used to provide analgesia adequate to support activities of daily living, not attempting to achieve a specific pain score on the 0-10 Visual Analog Scale. The current opiate medications are providing sufficient analgesia to allow the patient to participate in activities of daily living. The patient is not exhibiting any aberrant behavior suggestive of drug diversion. The patient is not having any adverse reactions to medications. The patient is not suffering from daytime somnolence or mental acuity changes. The patient is managing opiate-induced constipation with appropriate uglc-elg-qmvxgxw agents and dietary considerations. The patient was counseled on concern for caution with operating a motor vehicle while using opiate medications. A physical exam was performed and the patient's functional status was evaluated. All patients with back pain were advised against the bed rest greater than 4 days and were advised to return to normal activities. Pain score assessment was noted and the treatment plan was reviewed with the patient. All current medications, both prescribed and OTC were reviewed and reconciled on the electronic medical record. Tobacco screening was accomplished and smoking cessation was advised when indicated. BMI was noted and diet/exercise modification was recommended for all patients following outside normal parameters. I reviewed with the patient today their responsibilities to safeguard prescription medications, reviewed their responsibility to utilize medications only as prescribed by the physician. They are to seek and receive pain medications only from 1 physician group ( [facility]). They are to use 1 pharmacy and keep the clinic informed if they change pharmacies. Their responsibilities include making followup visits in a timely fashion and to avoid abrupt discontinuation of medication usage. Their responsibilities further include bringing their medications (bottles from the pharmacy with residual pills) to the visit for possible confirmation of pill counts and the patient understands it is their responsibility to submit to random drug screens to ensure both that the medications prescribed are present, and that no other [facility] [address] [place] [address] PAIN MANAGEMENT CONSULTATION Name: MELLO LERMA [id number] Admission: 03/28/19 ������������������ Attend Phys: Dena LEANNE Senia Discharge: ������������������ Date of : 70 Report #: [id number] controlled substances are present. All prescriptions provided today were generated electronically. IMPRESSION: 1. Chronic intractable headache with hemicrania continua. 2. Management of high risk medications. PLAN: 1. We discussed treatment options with the patient today. The patient feels like his medications are working. He tells me occasionally in the middle of the night his legs awaken him with some crampy feeling. He at times is wondering if he is going through withdrawal. I explained to him if he had taken his medicines prior to bedtime and in the morning. The medication is still in his system. I do not believe these are withdrawal symptoms. It could be muscle spasms or possible restless leg. The patient encouraged to pay attention if they are more of a spasm or if they are jerky feeling. We will address this at his next visit. Scripts given today for his oxycodone 10/325 up to 6 tablets a day, #180 for today and 4-week release. This places the patient at morphine mEq at 90 morphine mEq per day on the high end of the CDC guidelines, but still within them. The patient does require prior authorizations every 2 months from his insurance company. We will release the script today, so the pharmacy may send the paperwork for his prior authorization. He has been stable on this medicine for quite some time. 2. Scripts given for escitalopram 20 mg, #30 with 5 additional refill for a total of 6 months as well as indomethacin 75 mg #30 with 5 additional refills. I did caution the patient again as we do every time about the indomethacin. He is not to take it on a daily basis or as needed, especially now since he has lost weight. He does not complain of any abdominal discomfort or blood in his stools, but nonsteroidal anti-inflammatories can cause GI issues and we reiterated that to him today. 3. The patient is to keep us apprised of his ongoing colonoscopy results. The patient seen in collaboration with Dr. Ketan Olivier. He will return in 2 months. ��������������������������������������������� <ELECTRONICALLY SIGNED> ���������������������������������������� By: Dena Conn ��������������������������������������������� 04/02/19 1136 [id number] Dena Conn /nt
== END ==
LOC: PAIN 06:52
DX: R51 Headache (principal); Z88.0 Allergy status to penicillin; Z79.899 Other long term (current) drug therapy

== ENCOUNTER → 2019-05-20 | Outpatient (CLI) | payer BC, OTHER ==
[~2019-05-20] VITALS: Ht 180.3 cm; Wt 85.8 kg
[2019-05-20 13:09] VITALS: BP 122/76
--- NOTE | 2019-05-20 13:15 | NUR ---
Pain Clinic Assessment: 1. History of Osteoarthritis: Not Applicable History of Rheumatoid Arthritis: Not Applicable 2. Height: 5 ft. 11 in. 180.3 cm. Weight: 189.2 lb. oz. 85.821 kg. Patient's BMI: 26.4 3. Vital Signs: BP: 122/76 Pulse: 62 Resp: 18 Temp: 02 Sat: 95 ECG Mon: 4. Pain Intensity: 5 5. Fall Risk: Dizziness: N Needs help standing or walking: N Fallen in the last 3 months: N Fall risk comments: 6. Patient on Blood Thinner: None 7. History of Hypertension: N 8. Opioid Therapy greater than 6 weeks: Y Opiate Contract Signed: 12/13/18 9. Risk Assessment Tool Provided: low-0 10. Functional Assessment Tool: 35/70 11. Recreational Drug Use: Current within past 3 mos Drug Type: marajuana Tobacco Use: Current Every Day Smoker Tobacco Type: Cigarettes Amount or Packs/day: How Many Years: Alcohol Use: No Frequency: Quant:
--- NOTE | 2019-05-21 09:20 | HPC ---
[facility] [address] [place] [address] PAIN MANAGEMENT CONSULTATION Name: MELLO LERMA Room #: REG CL M..#: [id number] Admission: 05/20/19 Attend Phys: Dena Conn Discharge: Date of : 70 Report #: [id number] THIS REPORT FOR: //name// CC: Dena VALERIO DO Physician staff Ketan Olivier MD DATE OF SERVICE: 05/20/2019 CHIEF COMPLAINT: Chronic daily intractable headaches. HISTORY OF PRESENT ILLNESS: This is a 48-year-old gentleman who returns to the pain clinic today for refill of his medications. He seems slightly more upbeat today, not as depressed as he normally is when he sees us. He is rating his pain score average of 5/10, he feels like an ice cream brain freeze on the right side of his head. Per his report, it is exacerbated by noise or weather changes. He feels that his medications are very beneficial as well as dark rooms, quiet and heating pads. He does report that he is needing a refill of his medications within 2 days, where he will be out of his medication. This, per our records, looks to be 4 days early. He does report that he finds when he is working long 12-hour days that some days he does require more medication and other days he requires less when he is not working. He denies any problems with constipation today or daytime somnolence. His weight has leveled off since our last visit, with no further weight loss in the last 2 months. ALLERGIES: PENICILLIN. CURRENT LIST OF MEDICATIONS: Oxycodone 10/325 up to 6 times a day, escitalopram 20 mg daily, indomethacin 75 mg daily, gabapentin 3 pills at bedtime, aspirin 81 mg and a multivitamin. PQRS: 1. He does not have any rheumatoid or osteoarthritis. 2. Height is 5 feet 11 inches, weight is 189, BMI is 26. 3. Vital signs 122/76, pulse is 62, respirations 18, oxygen sat is 95. 4. Pain score is 5/10. 5. Denies dizziness, does not need help walking or standing, has not fallen in the last 3 months. 6. The patient is not on any blood thinners or take medicine for hypertension. 7. Opioid therapy is greater than 6 weeks; therefore, an opioid signed contract is on the chart. Risk assessment tool is low and functional assessment is 35/70. 8. Recreational drug use, currently using marijuana, currently smoking tobacco cigarettes every day, does not drink alcohol. [address] [address] PAIN MANAGEMENT CONSULTATION Name: MELLO LERMA [facility] [id number] Admission: 05/20/19 Attend Phys: Dena Conn Discharge: Date of : 70 Report #: [id number] According to the prescription monitoring system, the patient is filling monthly, though several days early each month. Reports that he is out of his medications in 2 days, which is a 4-day early according to our records. We discussed that he needs to change his system, taking only with him 6 tablets a day for each day, safeguarding the rest of his medications at all times as to not run out early of his medications. The patient verbalizes understanding. He reports he will try to keep better track of how many he is taking on a daily basis. We will recheck a random drug screen at his next visit. PHYSICAL EXAMINATION: GENERAL: This is a well-developed, well-nourished gentleman who appears his stated age, placing his current pain score today at 5/10. HEENT: Pupils equal, round and reactive to light. He has a headache in his temporal left area. Mucous membranes are moist. Hearing is adequate. ABDOMEN: Denies any tenderness or constipation issues. MUSCULOSKELETAL: No complaints of pain in his back or legs. IMPRESSION: 1. Chronic intractable headache with hemicrania continua. 2. Management of high-risk medications. PLAN: 1. We discussed treatment options with the patient today. The patient is working some days 12 hours a day. Those days, he has been taking extra pain pills and was due to be out early. I explained to the patient he needs to keep his meds safeguarded, only taking 6 tablets a day. If he does not need that many, then to replace them. He may use them at a medication at a different, but not to take more than 6 a day. The patient verbalizes understanding. He will only take with him what is needed per day and safeguard locked up the rest of them. I explained to him that we will not be able to release his medicines earlier than 28 days. He verbalizes understanding. Scripts set electronically today for his oxycodone 10/325, #180 for today and 4-week release. This does place the patient at 90 morphine mEq according to the CDC guidelines. 2. I did explain to the patient that we will not be doing prior authorizations for his oxycodone any longer per Dr. Olivier. The patient does report to me that as long as it goes through his secondary insurance, he is only paying $8 a month for his medication and has not been a problem with prior authorization. 3. The patient discharged to home. He has not had any further weight loss since we last have seen him and has been stable and his test results came back normal. He has decreased his nonsteroidal use to only 1 a day. Scripts not needed today for his escitalopram, his indomethacin or his gabapentin. 4. I also cautioned the patient on smoking cessation and not using marijuana. I explained to him again that we will give him a card for [employer] KEVIN that he can look to see if he would like to switch to medical marijuana when it becomes legalized in July. He said at this time he is not interested in that, but [facility] [address] [address] PAIN MANAGEMENT CONSULTATION Name: MELLO LERMA Room #: REG [facility].#: [id number] Admission: 05/20/19 Attend Phys: Dena Conn Discharge: Date of : 70 Report #: [id number] may be in the near future. I encouraged him to try to discontinue any use of marijuana. 5. The patient is seen in collaboration with Dr. Ketan Olivier today who did see the patient as well. <ELECTRONICALLY SIGNED> By: Dena Conn 05/21/19 0920 1518 [id number] Dena Conn /adonay
== END ==
LOC: PAIN 06:59
DX: Z76.0 Encounter for issue of repeat prescription (principal); R51 Headache; G89.4 Chronic pain syndrome; Z88.0 Allergy status to penicillin; Z79.899 Other long term (current) drug therapy; Z79.891 Long term (current) use of opiate analgesic

== ENCOUNTER → 2019-07-15 | Outpatient (CLI) | payer BC, OTHER ==
[~2019-07-15] VITALS: Ht 180.3 cm; Wt 82.0 kg
[~2019-07-15] MED LIST changes: +NEURONTIN300 MG PO
[2019-07-15 10:36] VITALS: BP 121/76
--- NOTE | 2019-07-15 10:52 | NUR ---
Pain Clinic Assessment: 1. History of Osteoarthritis: Not Applicable History of Rheumatoid Arthritis: Not Applicable 2. Height: 5 ft. 11 in. 180.3 cm. Weight: 180.8 lb. oz. 82.010 kg. Patient's BMI: 25.2 3. Vital Signs: BP: 121/76 Pulse: 63 Resp: 14 Temp: 02 Sat: 98 ECG Mon: 4. Pain Intensity: 7 5. Fall Risk: Dizziness: N Needs help standing or walking: N Fallen in the last 3 months: N Fall risk comments: 6. Patient on Blood Thinner: None 7. History of Hypertension: N 8. Opioid Therapy greater than 6 weeks: Y Opiate Contract Signed: 12/13/18 9. Risk Assessment Tool Provided: low-0 10. Functional Assessment Tool: 35/70 11. Recreational Drug Use: Current within past 3 mos Drug Type: MARAJAUNA Tobacco Use: Current Every Day Smoker Tobacco Type: Cigarettes Amount or Packs/day: 1 PACK How Many Years: Alcohol Use: No Frequency: Quant:
--- NOTE | 2019-07-16 15:26 | HPC ---
[facility] [place] [address] PAIN MANAGEMENT CONSULTATION Name: MELLO LERMA Room #: REG [facility] Schneider.#: [id number] Admission: 07/15/19 Attend Phys: Dena Conn Discharge: Date of : 70 Report #: [id number] THIS REPORT FOR: //name// CC: Dena Olivier MD [facility] DATE OF SERVICE: 07/15/2019 CHIEF COMPLAINT: Chronic daily intractable headaches. HISTORY OF PRESENT ILLNESS: This is a 49-year-old gentleman who returns to the pain clinic today for refill of his medications for his chronic headache. He reports pain score is 7/10 that is a brain freeze on the right side of his head. He said the cold weather makes it worse and he feels jack that so far winter had been fairly mild. He feels the medication as well as dark rooms and quiet do relieve some of his headaches. He is here for refills today. The patient does continue to lose weight. His current weight is 180 today. This is down 20 pounds in the last 6 months. We have discussed this in the past. The patient feels that he has not changed any eating habits or exercise habits. He is not having any problems with constipation or diarrhea or nausea and vomiting. I did encourage the patient again to see his primary care doctor at [facility]. The patient does report that he has used marijuana in the past. I am ordering a urine drug screen today on him as well to see if there are any other medications in his system that would cause this weight loss. The patient tells me there should not be any other medication than his oxycodone. Again, I strongly encouraged him to see his primary care doctor. ALLERGIES: PENICILLIN. CURRENT LIST OF MEDICATIONS: Oxycodone 10/325 every 4 hours, escitalopram, indomethacin, gabapentin, naloxone as needed, aspirin and multivitamin. PQRS: 1. He does not suffer from rheumatoid or osteoarthritis. 2. Height is 5 feet 11, weight is 180, BMI is 25. 3. Vital signs: 121/76, pulse is 63, respirations 14, oxygen sat is 98. 4. Pain score 7/10. 5. Denies dizziness, does not need help walking or standing, has not fallen in the last 3 months. 6. The patient is not on any blood thinners and does not take medicine for hypertension. 7. Opioid therapy is greater than 6 weeks, therefore an opioid signed contract is on the chart. Risk assessment tool is low. Functional assessment is 35/70[place] [address] PAIN MANAGEMENT CONSULTATION Name: MELLO LERMA Room #: REG CLJose Cruz Schneider.#: [id number] Admission: 07/15/19 Attend Phys: Dena Conn Discharge: Date of : 70 Report #: [id number] 8. Recreational drug use of marijuana in the past. Current tobacco smoker and denies any alcohol. According to the prescription monitoring system, the patient is filling appropriately for his medications. He is due to fill those tomorrow. We will check a random drug screen on this patient as well today. According to the CDC guidelines, his morphine milligram equivalent is 100 per day. PHYSICAL EXAMINATION: GENERAL: This is a well-developed gentleman who appears his stated age, placing his current pain score at 7/10 today. HEENT: Pupils equal, round and reactive to light. Has a headache in the left temporal area of his head presently. Mucous membranes are moist. Hearing is adequate. ABDOMEN: Nontender. No bowel issues. IMPRESSION: 1. Chronic intractable headache with hemicrania continua. 2. Management of high risk medications. 3. History of marijuana use and cigarette use. We reviewed the fact that opiate medications are being used to provide analgesia adequate to support activities of daily living, not attempting to achieve a specific pain score on the 0-10 Visual Analog Scale. The current opiate medications are providing sufficient analgesia to allow the patient to participate in activities of daily living. The patient is not exhibiting any aberrant behavior suggestive of drug diversion. The patient is not having any adverse reactions to medications. The patient is not suffering from daytime somnolence or mental acuity changes. The patient is managing opiate-induced constipation with appropriate fwpm-qqi-tougbaw agents and dietary considerations. The patient was counseled on concern for caution with operating a motor vehicle while using opiate medications. PLAN: 1. We discussed treatment options with the patient today. The patient has continued to lose weight. He has lost 8 pounds since our last visit, a total of 20 pounds in the last 6 months. I encouraged him to reach out to his primary care doctor again for a complete physical. The patient had seen him last in February, had lab work and a Hemoccult performed, which were negative. I am concerned that the patient continues to lose weight without trying any weight loss activities. The patient verbalized understanding. He will call them for an appointment. I am calling the office myself today as well to have them call the patient for a appointment as well. 2. I encouraged the patient not to use marijuana until he has followed up with his [facility] doctor and has transitioned to the medical marijuana. The patient verbalizes understanding. We are not able to prescribe opioids if he [facility] [address] [place] [address] PAIN MANAGEMENT CONSULTATION Name: MELLO LERMA [facility] [id number] Admission: 07/15/19 Attend Phys: Dena Conn Discharge: Date of : 70 Report #: [id number] is using marijuana.He will also try to decrease his cigarette use as well. 3. Scripts will be sent electronically by Dr. Ketan Olivier today for his oxycodone , #180 for today and 4-week release. 4. I will send gabapentin 300 mg 1 in the morning, 1 midday, 3 at bedtime, quantity 450 with one additional refill. This is a total of 6-month supply to his pharmacy. The patient is not needing his other medications refilled today. 5. The patient will see Dr. Ketan Olivier at his next visit, who collaborated care today. <ELECTRONICALLY SIGNED> By: Dena Conn 07/16/19 1526 1130 [id number] Dena Conn /adonay
== END ==
LOC: PAIN 06:54
DX: R51 Headache (principal); Z79.899 Other long term (current) drug therapy; Z88.8 Allergy status to other drugs, medicaments and biological substances

== ENCOUNTER → 2019-09-09 | Outpatient (CLI) | payer BC, OTHER ==
[~2019-09-09] VITALS: Ht 180.3 cm; Wt 80.9 kg
--- NOTE | ~2019-09-09 | HPC ---
[facility] [address] [place] [address] PAIN MANAGEMENT CONSULTATION Name: MELLO LERMA Room #: REG KECIA Schneider.#: [id number] Admission: 09/09/19 Attend Phys: Ketan Olivier MD Discharge: Date of : 70 Report #: [id number] THIS REPORT FOR: cc: TRAVIS VALERIO DO Physician not on staff Ketan Olivier MD ~ CC: TRAVIS Riddle MD Physician staff Ketan Olivier DATE OF SERVICE: 09/09/2019 REASON FOR VISIT: Followup visit for chronic daily headaches. SUBJECTIVE: The patient returns to pain clinic today in followup. He is on an opioid agreement for chronic headaches, described as hemicrania continua by Dr. Senthil Bean, neurologist. We have been providing with medications now for over 8 years. He is highly functional. 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 He is able to work with medication. In fact, he has been able to work because of medication. He is happily by his own report, has 2 children who are 12 and 14. He has good relationships with his children. They are unaware that he takes medications for his intractable pain. He has been open with me about using marijuana on occasions when the pain is severe as a medicine. He lives in [place] and is constantly afraid that the marijuana will interfere with his ability to receive chronic pain medicines. We have had many open discussions about this. I do not recommend it, nor do I prescribe it. It is [place] interesting situation [place] where patients in [place] are able to use marijuana as a medicinal substance, but the patient in [place] cannot. He does not like to use it, has used it only at night and has found it to be helpful when the headache has become so severe that he has nothing else that will work. He reports that he has used it twice in the last month. I am concerned about ongoing weight loss. He has lost 35 pounds in 18 months without reason. I have asked him directly about appetite and depression. He denies depression. He denies blood in the stools, difficulty with urination. No cough or change in breathing. He is a smoker and so concerned for cancer, certainly high on the list. There have been no other changes in his medications or diet. Recent drug screen was performed and is consistent with all medications prescribed. There are no unexpected entries in the drug screen. I do have some lab work sent to our clinic from Dr. Riddle at our request. Other than a low AST/SGOT, there are no other abnormalities. [facility] [address] [place] [address] PAIN MANAGEMENT CONSULTATION Name: MELLO LERMA Room #: REG [facility]#: [id number] Admission: 09/09/19 Attend Phys: Ketan Olivier MD Discharge: Date of : 70 Report #: [id number] Prescription drug monitoring information was reviewed. There are no unexpected entries. PHYSICAL EXAMINATION: VITAL SIGNS : 5 feet 11, now down to 178 pounds with a BMI of 24.9. His blood pressure 143/86, pulse is 69. He scores his pain as 10/10 and has functional assessment score to 35. He has completed an opioid risk tool with a score of 0/10. CHEST: His chest is clear. I could not hear any consolidations. Percussion is normal. CARDIAC: Rhythm is regular. ABDOMEN: Soft. No hepatomegaly, no splenomegaly. I deferred rectal exam. MUSCULOSKELETAL: He has a small mobile cyst-like structure on the right side of his neck that does not feel like a lymph node and has been chronic and ongoing. IMPRESSION: 1. Chronic headaches with hemicrania continua. 2. Management of high risk medications under terms of written opioid agreement. 3. History of marijuana and tobacco use. I have sent him to discuss marijuana as a medicine with a specialist. He understands that his use of marijuana as a medicine in [facility] is not considered medicinal. PLAN: I am going to slightly reduce his opioids. I told him that it was important that we make some efforts to reduce his opioids in the face of using marijuana. He will continue on gabapentin 1200 mg at bedtime. He has found that it works better rather than taking a dividing dose. We will continue on Lexapro daily, which is helpful for the headache and the noise that is constantly in his ears. He continues on indomethacin and I have discussed the nonsteroidal anti-inflammatory drugs and concerns that this may be playing some role in GI changes, particularly ulcerations, but he has no bleeding or hemoccult positive stools. Followup visit planned in 1-2 months. He has promised me that he will see his primary care physician. He should get a chest x-ray and colonoscopy. By: [id number] Ketan Olivier MD /nt
[2019-09-09 10:42] VITALS: BP 143/86
--- NOTE | 2019-09-09 10:54 | NUR ---
Pain Clinic Assessment: 1. History of Osteoarthritis: Not Applicable History of Rheumatoid Arthritis: Not Applicable 2. Height: 5 ft. 11 in. 180.3 cm. Weight: 178.4 lb. oz. 80.922 kg. Patient's BMI: 24.9 3. Vital Signs: BP: 143/86 Pulse: 69 Resp: 16 Temp: 02 Sat: 98 ECG Mon: 4. Pain Intensity: 10 5. Fall Risk: Dizziness: N Needs help standing or walking: N Fallen in the last 3 months: N Fall risk comments: 6. Patient on Blood Thinner: None 7. History of Hypertension: N 8. Opioid Therapy greater than 6 weeks: Y Opiate Contract Signed: 12/13/18 9. Risk Assessment Tool Provided: low-0 10. Functional Assessment Tool: 35/ 11. Recreational Drug Use: Current within past 3 mos Drug Type: MARIJUANA Tobacco Use: Current Every Day Smoker Tobacco Type: Cigarettes Amount or Packs/day: 1 How Many Years: 20 Alcohol Use: No Frequency: Quant:
== END ==
LOC: PAIN 06:53
DX: G44.51 Hemicrania continua (principal); G43.909 Migraine, unspecified, not intractable, without status migrainosus; F12.90 Cannabis use, unspecified, uncomplicated; Z72.0 Tobacco use

== ENCOUNTER → 2019-11-04 | Outpatient (CLI) | payer BC, OTHER ==
[~2019-11-04] VITALS: Ht 180.3 cm; Wt 81.6 kg
[~2019-11-04] MED LIST changes: +LEXAPRO20 MG PO
[2019-11-04 12:43] VITALS: BP 117/84
--- NOTE | 2019-11-04 12:58 | NUR ---
Pain Clinic Assessment: 1. History of Osteoarthritis: Not Applicable History of Rheumatoid Arthritis: Not Applicable 2. Height: 5 ft. 11 in. 180.3 cm. Weight: 180.0 lb. oz. 81.648 kg. Patient's BMI: 25.1 3. Vital Signs: BP: 117/84 Pulse: 69 Resp: 16 Temp: 02 Sat: 97 ECG Mon: 4. Pain Intensity: 6 5. Fall Risk: Dizziness: N Needs help standing or walking: N Fallen in the last 3 months: N Fall risk comments: 6. Patient on Blood Thinner: None 7. History of Hypertension: N 8. Opioid Therapy greater than 6 weeks: Y Opiate Contract Signed: 12/13/18 9. Risk Assessment Tool Provided: low-0 10. Functional Assessment Tool: 35/ 11. Recreational Drug Use: Current within past 3 mos Drug Type: MARIJUANA Tobacco Use: Current Every Day Smoker Tobacco Type: Cigarettes Amount or Packs/day: 1 How Many Years: 20 Alcohol Use: No Frequency: Quant:
--- NOTE | 2019-11-06 12:45 | HPC ---
[facility] [address] [place] [address] PAIN MANAGEMENT CONSULTATION Name: MELLO LERMA Room #: REG [facility]..#: [id number] Admission: 11/04/19 Attend Phys: Dena Conn Discharge: Date of : 70 Report #: [id number] THIS REPORT FOR: cc: TRAVIS VALERIO - Family physician unknown Dena Conn ~ CC: Ketan Olivier MD DATE OF SERVICE: 11/04/2019 CHIEF COMPLAINT: Chronic daily headaches. HISTORY OF PRESENT ILLNESS: This is a 49-year-old gentleman who returns to the pain clinic today for refill of his medications that he uses to help treat his ongoing chronic right headache as a result of hemicrania continua. The patient states that his pain score is a 6/10 with a current pain regimen that he is on. He states that his head feels like a brain freeze that is constant, though the medications do decrease it slightly. He feels that noise and weather changes do increase his pain. 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 He states he has not been able to do any photography during this time, but happy that he at least continues to be able to be employed. The patient today is requesting a new medication of tramadol he had heard that this medication is beneficial, most wondering if he may trial this medication since we decreased his oxycodone at his last visit. The patient also states that he continues to use medical marijuana, but he has not visited the [facility] doctors that Dr. Ketan Olivier did encourage him to see. The patient has also gained 2 pounds since our last visit, we have been worried about his continued weight loss. He did have an appointment with his primary care doctor since our last visit, but again since COVID he was unable to continue follow through with that appointment and he has not had a colonoscopy at this time also as a result of COVID. ALLERGIES: PENICILLIN. CURRENT LIST OF MEDICATIONS: Oxycodone 10/325 p.r.n., gabapentin 300 mg a total of 5 pills a day, escitalopram 20 mg, indomethacin, aspirin, and multivitamin. PQRS: 1. The patient denies any osteo or rheumatoid arthritis. 2. Height is 5 feet 11 inches, BMI is 25, weight is 180 again up 2 pounds. 3. Vital signs; blood pressure 117/84, pulse is 69, respirations 16, and oxygen sat is 97%. 4. Pain score 6/10[place] [address] PAIN MANAGEMENT CONSULTATION Name: MELLO LERMA Room #: REG [facility] Wyatt.#: [id number] Admission: 11/04/19 Attend Phys: Dena Conn Discharge: Date of : 70 Report #: [id number] 5. Denies dizziness, does not need help walking or standing, has not fallen in the last 3 months. 6. The patient is not on any blood thinners or medicine for hypertension. 7. Opioid therapy is greater than 6 weeks; therefore, an opioid signed contract is on the chart. Risk assessment tool is low. Functional assessment is 35/70. 8. Recreational drug use of marijuana in the past. He currently smokes a pack of cigarettes a day and does not drink alcohol. According to the prescription monitoring system, the patient is filling appropriately for his medications in a timely fashion. According to the CDC guidelines, he is below the 90 MME milliequivalents per day. PHYSICAL EXAMINATION: GENERAL: This is alert and orientated 49-year-old gentleman who appears his stated age, placing his current pain score at 6/10. HEENT: Pupils are equal, round and reactive to light. He has a headache in the left temporal area of his head presently. Hearing is adequate. Mucous membranes are moist. ABDOMEN: Nontender with no bowel issues. No hepatomegaly or splenomegaly. IMPRESSION: 1. Chronic headache with hemicrania continua 2. Management of high risk medications under terms of written opioid agreement, history of marijuana and tobacco use. We reviewed the fact that opiate medications are being used to provide analgesia adequate to support activities of daily living, not attempting to achieve a specific pain score on the 0-10 Visual Analog Scale. The current opiate medications are providing sufficient analgesia to allow the patient to participate in activities of daily living. The patient is not exhibiting any aberrant behavior suggestive of drug diversion. The patient is not having any adverse reactions to medications. The patient is not suffering from daytime somnolence or mental acuity changes. The patient is managing opiate-induced constipation with appropriate virk-tik-nlylafn agents and dietary considerations. The patient was counseled on concern for caution with operating a motor vehicle while using opiate medications. A physical exam was performed and the patient's functional status was evaluated. All patients with back pain were advised against the bed rest greater than 4 days and were advised to return to normal activities. Pain score assessment was noted and the treatment plan was reviewed with the patient. All current medications, both prescribed and OTC were reviewed and reconciled on the electronic medical record. Tobacco screening was accomplished and smoking cessation was advised when indicated. BMI was noted and diet/exercise modification was recommended for all patients following outside normal parameters. [address] [address] PAIN MANAGEMENT CONSULTATION Name: MELLO LERMA Room #: REG [facility] Wyatt#: [id number] Admission: 11/04/19 Attend Phys: Dena Conn Discharge: Date of : 70 Report #: [id number] I reviewed with the patient today their responsibilities to safeguard prescription medications, reviewed their responsibility to utilize medications only as prescribed by the physician. They are to seek and receive pain medications only from 1 physician group ( [facility]). They are to use 1 pharmacy and keep the clinic informed if they change pharmacies. Their responsibilities include making followup visits in a timely fashion and to avoid abrupt discontinuation of medication usage. Their responsibilities further include bringing their medications (bottles from the pharmacy with residual pills) to the visit for possible confirmation of pill counts and the patient understands it is their responsibility to submit to random drug screens to ensure both that the medications prescribed are present, and that no other controlled substances are present. All prescriptions provided today were generated electronically. PLAN: 1. We discussed treatment options with the patient today. The patient has not gone to see the medical marijuana specialist, Dr. Ketan Olivier had referred him to. He reports at this time he is not interested in seeing that physician. 2. The patient states he is doing fair since the decrease of his medication. We will continue him on his oxycodone 10/325 #165 for today and 4 weeks supply. 3. I will refill his indomethacin for a year supply. These will be sent electronically as well. 4. We did discuss the patient's request for tramadol. I explained to him the serotonin uptake that he would experience with tramadol as well as his antidepressant and also for pain control that is much weaker opioid then his current oxycodone. The patient states that he will stay at his current medications. 5. The patient encouraged to see his primary care doctor before we see him again since the COVID virus locked down will hopefully be over soon, the patient verbalizes understanding. 6. The patient is seen today in collaboration with Dr. Ketan Olivier. <ELECTRONICALLY SIGNED> By: Dena Conn 11/06/19 1245 [id number] Dena Conn /nt
== END ==
LOC: PAIN 06:59
DX: G44.51 Hemicrania continua (principal); F11.20 Opioid dependence, uncomplicated; F17.200 Nicotine dependence, unspecified, uncomplicated; Z88.1 Allergy status to other antibiotic agents; Z79.899 Other long term (current) drug therapy

== ENCOUNTER → 2019-12-30 | Outpatient (CLI) | payer BC, OTHER ==
[~2019-12-30] VITALS: Ht 180.3 cm; Wt 78.7 kg
[2019-12-30 10:05] VITALS: BP 134/78
--- NOTE | 2019-12-30 10:17 | NUR ---
Pain Clinic Assessment: 1. History of Osteoarthritis: Not Applicable History of Rheumatoid Arthritis: Not Applicable 2. Height: 5 ft. 11 in. 180.3 cm. Weight: 173.6 lb. oz. 78.744 kg. Patient's BMI: 24.2 3. Vital Signs: BP: 134/78 Pulse: 60 Resp: 14 Temp: 02 Sat: 97 ECG Mon: 4. Pain Intensity: 7 5. Fall Risk: Dizziness: N Needs help standing or walking: N Fallen in the last 3 months: N Fall risk comments: 6. Patient on Blood Thinner: None 7. History of Hypertension: N 8. Opioid Therapy greater than 6 weeks: Y Opiate Contract Signed: 12/13/18 9. Risk Assessment Tool Provided: low-0 10. Functional Assessment Tool: 35/70 11. Recreational Drug Use: Current within past 3 mos Drug Type: Tobacco Use: Current Every Day Smoker Tobacco Type: Cigarettes Amount or Packs/day: 1 pack How Many Years: 30 Alcohol Use: No Frequency: Quant:
--- NOTE | 2019-12-31 09:12 | HPC ---
[facility] [address] [place] [address] PAIN MANAGEMENT CONSULTATION Name: MELLO LERMA Room #: REG [facility] M..#: [id number] Admission: 12/30/19 Attend Phys: Dena Conn Discharge: Date of : 70 Report #: [id number] THIS REPORT FOR: cc: TRAVIS VALERIO DO Physician not on staff Dena Conn ~ CC: Ketan Olivier MD DATE OF SERVICE: 12/30/2019 CHIEF COMPLAINT: Chronic daily headaches. HISTORY OF PRESENT ILLNESS: This is a 49-year-old gentleman who is well known to the pain clinic. He returns today for refill of his opioid medications. Today, I am discussing his chronic headaches that he takes oxycodone for. He finds that it is beneficial, rating though his pain as 7/10 on the right side of his head. He does still occasionally use medical grade marijuana at bedtime. We did discuss again the use of opioids and marijuana, how it is not legal in his state [facility] and encouraged him to either decrease his opioids further which Dr. Olivier had done recently or to stop his marijuana. The patient reports he would rather stop marijuana and then go off his opioids. The patient continues to lose weight. Today, he is weighing 173, this is down 7 pounds since his last visit on 11/04/2019. This has been worrisome to Dr. Olivier and myself, which we have been discussing a great lengths for a long time with this patient, he finally does have a colonoscopy and EGD scheduled for tomorrow with Dr. Toney. I encouraged the patient to have them send us a report. The patient had gained 2 pounds at his last visit, but now back down 7. He states that he does have diarrhea quite frequently. No blood in his stools that he is able to notice and he does not have any gastric pain or discomfort in his stomach upon eating. He does continue his indomethacin, which I did explain to him that he may need to stop, which can be very hard on that gastric intestinal tract. The patient finds that medicine very beneficial in helping his overall aches and pains. I explained to him to keep us abreast on his medical condition. ALLERGIES: PENICILLIN. CURRENT LIST OF MEDICATIONS: Oxycodone 10/325 p.r.n., Lexapro, indomethacin, gabapentin, aspirin, and multivitamin. PQRS: 1. He denies any osteoarthritis or rheumatoid arthritis. 2. Height is 5 feet 11 inches, weight is 173. BMI is 24. 3. Vital signs: Blood pressure 134/78, pulse is 60, respirations 14, oxygen sat is 97. [address] [address] PAIN MANAGEMENT CONSULTATION Name: MELLO LERMA Room #: REG KECIA Powell#: [id number] Admission: 12/30/19 Attend Phys: Dena Conn Discharge: Date of : 70 Report #: [id number] 4. Pain score is 7/10. 5. Denies dizziness, does not need help walking or standing, has not fallen in the last 3 months. 6. The patient is not on any blood thinners or medicine for hypertension. Opioid therapy is greater than 6 weeks; therefore, an opioid signed contract is on the chart. Risk assessment tool is low. Functional assessment is 35/70. 7. Recreational drug use currently, which we have discussed. He does continue to smoke cigarettes as well and does not drink alcohol. According to the prescription monitoring system, the patient is due to fill his medications today, filling them in a timely fashion. His morphine mEq is 90 MME per day. PHYSICAL EXAMINATION: GENERAL: This is alert and orientated gentleman who appears his stated age. He continues to lose weight. His BMI is 24, placing his current pain score is 7/10. HEENT: Pupils are equal, reactive to light. He has a headache in the temporal area. Hearing is adequate. He is wearing a mask. ABDOMEN: Nontender. IMPRESSION: 1. Chronic headache with hemicrania continua. 2. Management of high risk medications under written opioid agreement. 3. History of marijuana and tobacco use. 4. Continued weight loss, scheduled for colonoscopy. We reviewed the fact that opiate medications are being used to provide analgesia adequate to support activities of daily living, not attempting to achieve a specific pain score on the 0-10 Visual Analog Scale. The current opiate medications are providing sufficient analgesia to allow the patient to participate in activities of daily living. The patient is not exhibiting any aberrant behavior suggestive of drug diversion. The patient is not having any adverse reactions to medications. The patient is not suffering from daytime somnolence or mental acuity changes. The patient is managing opiate-induced constipation with appropriate rfpq-uoc-pwmjtxn agents and dietary considerations. The patient was counseled on concern for caution with operating a motor vehicle while using opiate medications. A physical exam was performed and the patient's functional status was evaluated. All patients with back pain were advised against the bed rest greater than 4 days and were advised to return to normal activities. Pain score assessment was noted and the treatment plan was reviewed with the patient. All current medications, both prescribed and OTC were reviewed and reconciled on the electronic medical record. Tobacco screening was accomplished and smoking cessation was advised when indicated. BMI was noted and diet/exercise [address] [address] PAIN MANAGEMENT CONSULTATION Name: MELLO LERMA Room #: REG [facility].#: [id number] Admission: 12/30/19 Attend Phys: Dena PERDOMO Senia Discharge: Date of : 70 Report #: [id number] modification was recommended for all patients following outside normal parameters. I reviewed with the patient today their responsibilities to safeguard prescription medications, reviewed their responsibility to utilize medications only as prescribed by the physician. They are to seek and receive pain medications only from 1 physician group ( [facility]). They are to use 1 pharmacy and keep the clinic informed if they change pharmacies. Their responsibilities include making followup visits in a timely fashion and to avoid abrupt discontinuation of medication usage. Their responsibilities further include bringing their medications (bottles from the pharmacy with residual pills) to the visit for possible confirmation of pill counts and the patient understands it is their responsibility to submit to random drug screens to ensure both that the medications prescribed are present, and that no other controlled substances are present. All prescriptions provided today were generated electronically. PLAN: 1. We discussed treatment options again with this patient today. As previously discussed, he is having a colonoscopy tomorrow. I encouraged him to send us his reports. We have been worried with his ongoing weight loss, again losing 7 pounds in the last 2 months. 2. We will continue his hydrocodone #165. We did discuss again decreasing this if he continues marijuana use. He reports he only uses it at bedtime. We explained to him that it is not legal in the [facility] and we cannot continue on opioids and marijuana. The patient states he would prefer to stay on his opioids. No changes will be made for his medications today. Scripts sent for [address] Ketan Olivier for today and 4 weeks supply. 3. The patient is to continue on his Lexapro as prescribed. The patient will return in followup in 2 months. The patient is seen in collaboration today with Dr. Ketan Olivier. <ELECTRONICALLY SIGNED> By: Dena Conn 12/31/19 0912 [id number] Dena Conn /nt
== END ==
LOC: PAIN 06:51
PROVIDERS: ATTEND Clinical Nurse Specialist Adult Health
DX: G44.51 Hemicrania continua (principal); R63.4 Abnormal weight loss; Z88.0 Allergy status to penicillin; Z79.899 Other long term (current) drug therapy; Z86.59 Personal history of other mental and behavioral disorders

== ENCOUNTER → 2020-02-24 | Outpatient (CLI) | payer BC, OTHER ==
[~2020-02-24] VITALS: Ht 180.3 cm; Wt 82.0 kg
[2020-02-24 12:39] VITALS: BP 140/93
--- NOTE | 2020-02-24 12:42 | NUR ---
Pain Clinic Assessment: 1. History of Osteoarthritis: Not Applicable History of Rheumatoid Arthritis: Not Applicable 2. Height: 5 ft. 11 in. 180.3 cm. Weight: 180.8 lb. oz. 82.010 kg. Patient's BMI: 25.2 3. Vital Signs: BP: 140/93 Pulse: 58 Resp: 20 Temp: 02 Sat: 96 ECG Mon: 4. Pain Intensity: 7 5. Fall Risk: Dizziness: N Needs help standing or walking: N Fallen in the last 3 months: N Fall risk comments: 6. Patient on Blood Thinner: None 7. History of Hypertension: N 8. Opioid Therapy greater than 6 weeks: Y Opiate Contract Signed: 12/13/18 9. Risk Assessment Tool Provided: low-0 10. Functional Assessment Tool: 35/70 11. Recreational Drug Use: Current within past 3 mos Drug Type: Tobacco Use: Current Every Day Smoker Tobacco Type: Amount or Packs/day: How Many Years: Alcohol Use: No Frequency: Quant:
--- NOTE | 2020-02-24 15:34 | HPC ---
[facility] [place] [address] PAIN MANAGEMENT CONSULTATION Name: MELLO LERMA Room #: REG KECIA MHi.#: [id number] Admission: 02/24/20 Attend Phys: Dena Conn Discharge: Date of : 70 Report #: [id number] THIS REPORT FOR: cc: Jaime Jaffe MD, Thomas M. MD Hocker, Amanda CNS ~ CC: Ketan Olivier MD DATE OF SERVICE: 02/24/2020 CHIEF COMPLAINT: Chronic headaches. HISTORY OF PRESENT ILLNESS: This is a 49-year-old gentleman who returns to the pain clinic today for refill of his opioid medications that he uses to help treat his ongoing chronic headaches. He describes them as an ice pick to the right side of his head. It is a constant chronic feeling and rating his pain as 7/10 today. He believes that bright lights and lots of noise do aggravate his headache. The medications he does find beneficial and allowing him to work on a daily basis as well as being in a dark room. The patient reports that he did have his EGD and colonoscopy completed. They did not find any issues in either one of those tests. He is going to have a whole body scan just to rule out any possible cancer since he had had significant weight loss. He states he was also tested for celiac disease, which he does not have. He believes they found some irritation in his lower stomach, gave him a prescription from medicine that he has not started. ALLERGIES: PENICILLIN. CURRENT LIST OF MEDICATIONS: Oxycodone 10/325 p.r.n.; Lexapro 20 mg; indomethacin 75 mg; gabapentin 300 mg, 300 mg and 900 mg; aspirin; multivitamin. PQRS: 1. He denies rheumatoid or osteoarthritis. 2. Height is 5 feet 11 inches, weight is 180, BMI is 25. 3. Vital signs 140/93, pulse is 58, respirations 20, oxygen sat is 96. Pain score is 7/10. He denies dizziness, does not need help walking or standing, has not fallen in the last 3 months. The patient is not on any blood thinners or medicine for hypertension. His opioid therapy is greater than 6 weeks; therefore, an opioid signed contract is on the chart. Risk assessment is low. Functional assessment is 35/70. 4. Recreational drug use in the past. He is a current smoker and does not drink alcohol. According to the prescription monitoring system, the patient is due to fill his medications tomorrow, filling them in a timely fashion. His morphine mEq [address] [address] PAIN MANAGEMENT CONSULTATION Name: MELLO LERMA [id number] Admission: 02/24/20 Attend Phys: Dena Conn Discharge: Date of : 70 Report #: [id number] according to the CDC guidelines is 92 MME. PHYSICAL EXAMINATION: GENERAL: This is alert and orientated 49-year-old gentleman who appears his stated age, placing his current pain score at 7/10. HEENT: Normocephalic, atraumatic. Extraocular eye muscles are intact. Mucous membranes are moist. He has a headache in the temporal area of his head. He is wearing a mask today. IMPRESSION: 1. Chronic headache with hemicrania continua. 2. Management of high risk medications under terms of written opioid agreement. We reviewed the fact that opiate medications are being used to provide analgesia adequate to support activities of daily living, not attempting to achieve a specific pain score on the 0-10 Visual Analog Scale. The current opiate medications are providing sufficient analgesia to allow the patient to participate in activities of daily living. The patient is not exhibiting any aberrant behavior suggestive of drug diversion. The patient is not having any adverse reactions to medications. The patient is not suffering from daytime somnolence or mental acuity changes. The patient is managing opiate-induced constipation with appropriate oxwi-lue-luwfzpw agents and dietary considerations. The patient was counseled on concern for caution with operating a motor vehicle while using opiate medications. PLAN: 1. We discussed treatment options with the patient today. The patient was relieved to hear that his EGD and colonoscopy were normal, though he was prescribed a medication for his stomach for possible irritation. The patient reports he has not started this medicine. I encouraged the patient to fill this possible omeprazole medication since he does take indomethacin on an as needed basis. This will help with any stomach discomfort. The patient is agreeable to fill his medication and trial it. 2. We will have Dr. Ketan Olivier send his oxycodone , #165 to his pharmacy. The patient reports he is going out of town for business tomorrow to [place]. He would like to fill it at the [facility] in the morning prior to going out of town since he is planning on leaving before his normal pharmacy at [facility] as open. We will agree to this for 1 month, then return to his [facility] pharmacy for the 4-week prescription fill. 3. The patient is not needing his gabapentin, Lexapro, or indomethacin filled today. 4. The patient is seen in collaboration with Dr. Ketan Olivier. The patient [address] [address] PAIN MANAGEMENT CONSULTATION Name: MELLO LERMA Room #: JELENA SchneiderUmesh#: [id number] Admission: 02/24/20 Attend Phys: Dena Conn Discharge: Date of : 70 Report #: [id number] may have a full body scan done prior to our next appointment. I encouraged the patient to have the results sent to us. <ELECTRONICALLY SIGNED> By: Dena Conn 02/24/20 1534 [id number] Dean Conn /adonay
== END ==
LOC: PAIN 07:07
PROVIDERS: ATTEND Clinical Nurse Specialist Adult Health
DX: G44.51 Hemicrania continua (principal); G89.29 Other chronic pain; Z79.891 Long term (current) use of opiate analgesic

== ENCOUNTER → 2020-04-20 | Outpatient (CLI) | payer BC, OTHER ==
[~2020-04-20] VITALS: Ht 180.3 cm; Wt 81.2 kg
[2020-04-20 09:32] VITALS: BP 126/71
--- NOTE | 2020-04-20 09:45 | NUR ---
Pain Clinic Assessment: 1. History of Osteoarthritis: NONE History of Rheumatoid Arthritis: NONE 2. Height: 5 ft. 11 in. 180.3 cm. Weight: 179.0 lb. oz. 81.194 kg. Patient's BMI: 25.0 3. Vital Signs: BP: 126/71 Pulse: 64 Resp: 14 Temp: 02 Sat: 96 ECG Mon: 4. Pain Intensity: CHANGES CONSTANTLY 5. Fall Risk: Dizziness: N Needs help standing or walking: N Fallen in the last 3 months: N Fall risk comments: 6. Patient on Blood Thinner: None 7. History of Hypertension: N 8. Opioid Therapy greater than 6 weeks: Y Opiate Contract Signed: 12/13/18 9. Risk Assessment Tool Provided: low-0 10. Functional Assessment Tool: 11. Recreational Drug Use: Current within past 3 mos Drug Type: MJ Tobacco Use: Current Every Day Smoker Tobacco Type: Cigarettes Amount or Packs/day: 1 How Many Years: Alcohol Use: No Frequency: Quant:
--- NOTE | 2020-04-21 07:52 | HPC ---
[facility] [address] [place] [address] PAIN MANAGEMENT CONSULTATION Name: MELLO LERMA Room #: REG Jose Cruz Sherry#: [id number] Admission: 04/20/20 Attend Phys: Dena Conn Discharge: Date of : 70 Report #: [id number] CC: Dena Jaffe DATE OF SERVICE: 04/20/2020 CHIEF COMPLAINT: Chronic headaches. HISTORY OF PRESENT ILLNESS: This is a 49-year-old gentleman who is well known to the pain clinic. He continues to find his oxycodone very beneficial in helping him control his chronic headaches and head pain that is located on the right side of his head. He feels that it is a constant aching, sometimes it can feel like an ice pick to his head and lasts momentarily and then go away. He finds his other medicines gabapentin, Lexapro, and occasional indomethacin are beneficial as well. His pain is worse with noise and light. 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 He does go home and tries to relax and that is beneficial as well. He is not having any constipation issues currently. The patient does report he is trying to eat 6 small meals a day, which is very difficult to do with his job because he does eat sporadically at work. He was scheduled to have a bone scan, but per his report his primary doctor, Dr. Jaffe has put his bone scan on hold to see if the patient is able to gain any weight by eating 6 small meals a day. His pain has remained constant for the last 6 months in our office after a significant decrease last winter. ALLERGIES: PENICILLIN. CURRENT LIST OF MEDICATIONS: Oxycodone 10/325 p.r.n., Lexapro, indomethacin, gabapentin, aspirin, multivitamin. PQRS: 1. He denies rheumatoid or osteoarthritis. 2. Height is 5 feet 11 inches, weight is 179, BMI is 25. 3. Vital signs; blood pressure 126/71, pulse is 64, respirations 14, oxygen sat is 96. 4. Pain 0-10 depending on the moment. 5. Fall risk. Denies dizziness, does not need help walking or standing, has not fallen in the last 3 months. 6. The patient is not on any blood thinners or medicine for hypertension. 7. Opioid therapy is greater than 6 weeks; therefore, an opioid signed contract is on the chart. Risk assessment is low. Functional assessment is 36/70. 8. Recreational drug use in the past. He is a current smoker and does not drink alcohol. According to the prescription monitoring system, the patient is filling his medications appropriately. He did have one vacation fill which we are aware of, but he is on time to fill his medicines today. His morphine milliequivalent is 90 MME according to the CDC guidelines. We will recheck a UDS on him at his next visit. PHYSICAL EXAMINATION: GENERAL: This is alert and orientated 49-year-old gentleman who appears his stated age, placing his current pain score varying at 0-10. HEENT: Normocephalic, atraumatic. Extraocular eye muscles are intact. He is wearing a mask. He has dark circles under his eyes, appear tired. MUSCULOSKELETAL: He has pain that is located in the temporal portion of his head. He has poor dentition. IMPRESSION: 1. Chronic headache with hemicrania continua. 2. Management of high risk medications under terms of written opioid agreement. We reviewed the fact that opiate medications are being used to provide analgesia adequate to support activities of daily living, not attempting to achieve a specific pain score on the 0-10 Visual Analog Scale. The current opiate medications are providing sufficient analgesia to allow the patient to participate in activities of daily living. The patient is not exhibiting any aberrant behavior suggestive of drug diversion. The patient is not having any adverse reactions to medications. The patient is not suffering from daytime somnolence or mental acuity changes. The patient is managing opiate-induced constipation with appropriate ikmr-whq-plljmsw agents and dietary considerations. The patient was counseled on concern for caution with operating a motor vehicle while using opiate medications. A physical exam was performed and the patient's functional status was evaluated. All patients with back pain were advised against the bed rest greater than 4 days and were advised to return to normal activities. Pain score assessment was noted and the treatment plan was reviewed with the patient. All current medications, both prescribed and OTC were reviewed and reconciled on the electronic medical record. Tobacco screening was accomplished and smoking cessation was advised when indicated. BMI was noted and diet/exercise modification was recommended for all patients following outside normal parameters. I reviewed with the patient today their responsibilities to safeguard prescription medications, reviewed their responsibility to utilize medications only as prescribed by the physician. They are to seek and receive pain medications only from 1 physician group ( [facility]). They are to use 1 pharmacy and keep the clinic informed if they change pharmacies. Their responsibilities include making followup visits in a timely fashion and to avoid abrupt discontinuation of medication usage. Their responsibilities further include bringing their medications (bottles from the pharmacy with residual pills) to the visit for possible confirmation of pill counts and the patient understands it is their responsibility to submit to random drug screens to ensure both that the medications prescribed are present, and that no other controlled substances are present. All prescriptions provided today were generated electronically. PLAN: 1. We discussed treatment options with the patient today. 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 His bone scan is on hold per his report from his doctor who he will be seeing again next month. 2. We will continue him on his oxycodone , #165. The patient finds these are very beneficial in helping with his head pain. 3. At this time, he believes he has refills of his indomethacin, gabapentin, and Lexapro. We will not refill these presently. If he finds he needs one prior to his next appointment, we will call those in. I did remind the patient to make sure he does take his indomethacin with plenty of food in his stomach. 4. The patient will return in 2 months. At that time, we will collect a random drug screen. <ELECTRONICALLY SIGNED> By: Dena Conn 04/21/20 0752 [id number] Dena Conn /nt
== END ==
LOC: PAIN 06:49
PROVIDERS: ATTEND Clinical Nurse Specialist Adult Health
DX: R51.9 Headache, unspecified (principal); G44.51 Hemicrania continua; F11.20 Opioid dependence, uncomplicated

== ENCOUNTER → 2020-05-18 | Outpatient (CLI) | payer BC, OTHER ==
[~2020-05-18] VITALS: Ht 180.3 cm; Wt 80.7 kg
[~2020-05-18] MED LIST changes: +DURAGESIC1 EAC4 TRANSDERM
[2020-05-18 14:04] VITALS: BP 123/79
--- NOTE | 2020-05-18 14:20 | NUR ---
Pain Clinic Assessment: 1. History of Osteoarthritis: NONE History of Rheumatoid Arthritis: NONE 2. Height: 5 ft. 11 in. 180.3 cm. Weight: 178.0 lb. oz. 80.740 kg. Patient's BMI: 24.8 3. Vital Signs: BP: 123/79 Pulse: 66 Resp: 14 Temp: 02 Sat: 98 ECG Mon: 4. Pain Intensity: CHANGES CONSTANTLY 5. Fall Risk: Dizziness: N Needs help standing or walking: N Fallen in the last 3 months: N Fall risk comments: 6. Patient on Blood Thinner: None 7. History of Hypertension: N 8. Opioid Therapy greater than 6 weeks: Y Opiate Contract Signed: 12/13/18 9. Risk Assessment Tool Provided: low-0 10. Functional Assessment Tool: / 11. Recreational Drug Use: Current within past 3 mos Drug Type: Tobacco Use: Current Every Day Smoker Tobacco Type: Amount or Packs/day: How Many Years: Alcohol Use: No Frequency: Quant:
== END ==
LOC: PAIN 06:56
PROVIDERS: ATTEND Anesthesiology Pain Medicine
DX: R51.9 Headache, unspecified (principal); G89.29 Other chronic pain; F11.20 Opioid dependence, uncomplicated; F32.9 Major depressive disorder, single episode, unspecified; R63.4 Abnormal weight loss; F17.200 Nicotine dependence, unspecified, uncomplicated; Z88.8 Allergy status to other drugs, medicaments and biological substances; Z79.899 Other long term (current) drug therapy

== ENCOUNTER → 2020-06-01 | Outpatient (CLI) | payer BC, OTHER ==
[~2020-06-01] VITALS: Ht 180.3 cm; Wt 80.6 kg
[2020-06-01 10:13] VITALS: BP 143/90
--- NOTE | 2020-06-01 10:21 | NUR ---
Pain Clinic Assessment: 1. History of Osteoarthritis: NONE History of Rheumatoid Arthritis: NONE 2. Height: 5 ft. 11 in. 180.3 cm. Weight: 177.6 lb. oz. 80.559 kg. Patient's BMI: 24.8 3. Vital Signs: BP: 143/90 Pulse: 72 Resp: 14 Temp: 02 Sat: 96 ECG Mon: 4. Pain Intensity: 5 5. Fall Risk: Dizziness: N Needs help standing or walking: N Fallen in the last 3 months: N Fall risk comments: 6. Patient on Blood Thinner: None 7. History of Hypertension: N 8. Opioid Therapy greater than 6 weeks: Y Opiate Contract Signed: 12/13/18 9. Risk Assessment Tool Provided: low-0 10. Functional Assessment Tool: 11. Recreational Drug Use: Current within past 3 mos Drug Type: Tobacco Use: Current Every Day Smoker Tobacco Type: Amount or Packs/day: How Many Years: Alcohol Use: No Frequency: Quant:
--- NOTE | 2020-06-02 09:18 | HPC ---
[facility] [address] [place] [address] PAIN MANAGEMENT CONSULTATION Name: MELLO LERMA Room #: REG [facility] MHi.#: [id number] Admission: 06/01/20 Attend Phys: Dena Conn Discharge: Date of : 70 Report #: [id number] THIS REPORT FOR: cc: Jaime Jaffe MD, Thomas M. MD Hocker, Amanda CNS ~ CC: Dena Olivier MD DATE OF SERVICE: 06/01/2020 CHIEF COMPLAINT: Chronic intractable headache. HISTORY OF PRESENT ILLNESS: This is a 49-year-old gentleman who returns to the pain clinic today. He is tearful throughout some of our visit today. Dr. Olivier is here present for this discussion as well. Today, he is reporting a pain score 10/10, currently having an "ice cream headache" that feels like an ice pick behind his right eye. These come sporadically throughout the day. Normally, his pain is a 5/10. We had trialled fentanyl patch 25 mcg. The patient reports he utilized this for 9 days and was extremely nauseated during this time frame. Once he removed the patch, his nausea did subside. Today, he is here to discuss other options for this right-sided headache. The patient has tried several medications in the past such as Xtampza, OxyContin and methadone and suboxone though we are unsure of the results of that medication trial and now Fentanyl. He has been on short-acting oxycodone for quite some time. He is becoming opioid tolerant to this medication and the medication ishaving end of dose failure. ALLERGIES: PENICILLIN. CURRENT LIST OF MEDICATIONS: Fentanyl 25 mcg patch, oxycodone 10/325 p.r.n., gabapentin, Lexapro, indomethacin, Narcan, aspirin and multivitamin. PQRS: 1. He denies osteo or rheumatoid arthritis. 2. Height is 5 feet 11 inches, weight is 177, BMI is 24. 3. Vital signs 143/90, pulse is 72, respirations 14, oxygen sat is 96%. Pain score is 5/10. 4. Fall risk: Denies dizziness, does not need help walking or standing, has not fallen in the last 3 months. 5. The patient is not on any blood thinners or medicine for hypertension. 6. His opioid therapy is greater than 6 weeks; therefore, an opioid signed contract is on the chart. 7. Risk assessment is low. Functional assessment is 36/70. 8. Recreational drug use currently. Denies smoking and does not drink alcohol. [address] [address] PAIN MANAGEMENT CONSULTATION Name: MELLO LERMA Room #: REG [facility].Bel.#: [id number] Admission: 06/01/20 Attend Phys: Dena Conn Discharge: Date of : 70 Report #: [id number] According to the prescription monitoring system, the patient is filling appropriately. Urine drug screen is on the chart and appropriate for his medications that we are aware of. It was positive for THC, which Dr. Olivier has addressed at his last visit and the patient was given a [facility] card. PHYSICAL EXAMINATION: GENERAL: This is alert and orientated, slightly tearful 49-year-old gentleman who is rating his pain score from 5 to 10 today. HEENT: Normocephalic, atraumatic. Extraocular eye muscles are intact. He has tenderness around his orbit on the right side of his head that radiates into his temporal area. MUSCULOSKELETAL: He has a normal gait and no back discomfort. IMPRESSION: 1. Chronic headache with hemicrania continua. 2. Management of high risk medications under terms of written opioid agreement. 3. Depression. We reviewed the fact that opiate medications are being used to provide analgesia adequate to support activities of daily living, not attempting to achieve a specific pain score on the 0-10 Visual Analog Scale. The current opiate medications are providing sufficient analgesia to allow the patient to participate in activities of daily living. The patient is not exhibiting any aberrant behavior suggestive of drug diversion. The patient is not having any adverse reactions to medications. The patient is not suffering from daytime somnolence or mental acuity changes. The patient is managing opiate-induced constipation with appropriate fwqi-yrm-yrfzggs agents and dietary considerations. The patient was counseled on concern for caution with operating a motor vehicle while using opiate medications. A physical exam was performed and the patient's functional status was evaluated. All patients with back pain were advised against the bed rest greater than 4 days and were advised to return to normal activities. Pain score assessment was noted and the treatment plan was reviewed with the patient. All current medications, both prescribed and OTC were reviewed and reconciled on the electronic medical record. Tobacco screening was accomplished and smoking cessation was advised when indicated. BMI was noted and diet/exercise modification was recommended for all patients following outside normal parameters. I reviewed with the patient today their responsibilities to safeguard prescription medications, reviewed their responsibility to utilize medications only as prescribed by the physician. They are to seek and receive pain medications only from 1 physician group ([facility]). They are to use 1 pharmacy and keep the clinic informed if they change pharmacies. Their [facility] [address] [place] [address] PAIN MANAGEMENT CONSULTATION Name: MELLO LERMA Room #: REG CLJose Cruz Powell#: [id number] Admission: 06/01/20 Attend Phys: Dena Conn Discharge: Date of : 70 Report #: [id number] responsibilities include making followup visits in a timely fashion and to avoid abrupt discontinuation of medication usage. Their responsibilities further include bringing their medications (bottles from the pharmacy with residual pills) to the visit for possible confirmation of pill counts and the patient understands it is their responsibility to submit to random drug screens to ensure both that the medications prescribed are present, and that no other controlled substances are present. All prescriptions provided today were generated electronically. PLAN: 1. We discussed treatment options with the patient today. Again, Dr. Olivier was present throughout some of this discussion. We are trying to find a long-acting medication that the patient will tolerate that will help decrease some of his pain, instead of taking multiple short-acting pain medications a day that he is becoming tolerant to. He had had a trial of methadone in 2011, but he is unsure of the results. We have found this medication very beneficial in helping with neuropathic pain. We will trial the patient on this medication since it does help with MDA receptors and then continue him on his oxycodone, which will affect different receptors and see if overall he does have better pain control. Due to the fact that methadone has such a long half-life, we have instructed him to start slow, taking 5 mg twice a day for 3 days, then increasing to 5 mg tablets 3 times a day. Continuing his short-acting medicine 6 times a day for the first 3 days, then decreasing that medication as well and on the sixth day, decreasing it to 4 tablets a day. The patient is agreeable to try all this. He is instructed to call our office if he has any difficulties or to call our office and report how he is doing on Monday. This will have him on this medication for 1 week. At that time, we may continue to increase his medicine depending on his pain level. 2. Scripts will be sent for #30 of 5 mg methadone as well as oxycodone 10/, #180. 3. The patient is seen today in collaboration with Dr. Ketan Olivier. We will follow up by phone. We will adjust the medications. <ELECTRONICALLY SIGNED> By: Dena Conn 06/02/20 0918 [id number] Dena Conn /nt
== END ==
LOC: PAIN 06:46
PROVIDERS: ATTEND Clinical Nurse Specialist Adult Health
DX: G44.51 Hemicrania continua (principal); F11.20 Opioid dependence, uncomplicated; F32.9 Major depressive disorder, single episode, unspecified; Z88.8 Allergy status to other drugs, medicaments and biological substances; Z79.899 Other long term (current) drug therapy

== ENCOUNTER → 2020-07-30 | Outpatient (CLI) | payer BC, OTHER ==
[~2020-07-30] VITALS: Ht 180.3 cm; Wt 82.1 kg
[~2020-07-30] MED LIST changes: +METHADONE HCL 110 M1 PO; +METHADONE HCL 110 MG PO
[2020-07-30 14:36] VITALS: BP 100/71
--- NOTE | 2020-07-30 14:42 | NUR ---
Pain Clinic Assessment: 1. History of Osteoarthritis: NONE History of Rheumatoid Arthritis: NONE 2. Height: 5 ft. 11 in. 180.3 cm. Weight: 181.0 lb. oz. 82.101 kg. Patient's BMI: 25.3 3. Vital Signs: BP: 100/71 Pulse: 84 Resp: 16 Temp: 02 Sat: 94 ECG Mon: 4. Pain Intensity: 5 5. Fall Risk: Dizziness: N Needs help standing or walking: N Fallen in the last 3 months: N Fall risk comments: 6. Patient on Blood Thinner: None 7. History of Hypertension: N 8. Opioid Therapy greater than 6 weeks: Y Opiate Contract Signed: 12/13/18 9. Risk Assessment Tool Provided: low-0 10. Functional Assessment Tool: 11. Recreational Drug Use: Current within past 3 mos Drug Type: MARIJUANA Tobacco Use: Current Every Day Smoker Tobacco Type: Cigarettes Amount or Packs/day: 1 PACK PER D How Many Years: Alcohol Use: No Frequency: Quant:
== END ==
LOC: PAIN 06:51
PROVIDERS: ATTEND Anesthesiology Pain Medicine
DX: G44.51 Hemicrania continua (principal); G89.4 Chronic pain syndrome; F32.9 Major depressive disorder, single episode, unspecified; Z79.891 Long term (current) use of opiate analgesic

== ENCOUNTER → 2020-08-27 | Outpatient (CLI) | payer BC, OTHER ==
[~2020-08-27] VITALS: Ht 180.3 cm; Wt 83.7 kg
[2020-08-27 13:55] VITALS: BP 134/85
--- NOTE | 2020-08-27 13:59 | NUR ---
Pain Clinic Assessment: 1. History of Osteoarthritis: NONE History of Rheumatoid Arthritis: NONE 2. Height: 5 ft. 11 in. 180.3 cm. Weight: 184.6 lb. oz. 83.734 kg. Patient's BMI: 25.8 3. Vital Signs: BP: 134/85 Pulse: 75 Resp: 18 Temp: 02 Sat: 97 ECG Mon: 4. Pain Intensity: 6 5. Fall Risk: Dizziness: N Needs help standing or walking: N Fallen in the last 3 months: N Fall risk comments: 6. Patient on Blood Thinner: None 7. History of Hypertension: N 8. Opioid Therapy greater than 6 weeks: Y Opiate Contract Signed: 12/13/18 9. Risk Assessment Tool Provided: low-0 10. Functional Assessment Tool: / 11. Recreational Drug Use: Past greater than 3 mos Drug Type: Tobacco Use: Current Every Day Smoker Tobacco Type: Cigarettes Amount or Packs/day: 1 PPD How Many Years: Alcohol Use: No Frequency: Quant:
== END ==
LOC: PAIN 07:07
PROVIDERS: ATTEND Anesthesiology Pain Medicine
DX: G44.51 Hemicrania continua (principal); F32.9 Major depressive disorder, single episode, unspecified; F11.20 Opioid dependence, uncomplicated; Z88.8 Allergy status to other drugs, medicaments and biological substances; Z79.899 Other long term (current) drug therapy

== ENCOUNTER → 2020-09-23 | Outpatient (CLI) | payer BC, OTHER ==
[~2020-09-23] VITALS: Ht 180.3 cm; Wt 85.3 kg
[2020-09-23 13:34] VITALS: BP 133/73
--- NOTE | 2020-09-23 13:38 | NUR ---
Pain Clinic Assessment: 1. History of Osteoarthritis: NONE History of Rheumatoid Arthritis: NONE 2. Height: 5 ft. 11 in. 180.3 cm. Weight: 188.0 lb. oz. 85.276 kg. Patient's BMI: 26.2 3. Vital Signs: BP: 133/73 Pulse: 80 Resp: 14 Temp: 02 Sat: 96 ECG Mon: 4. Pain Intensity: 5 5. Fall Risk: Dizziness: N Needs help standing or walking: N Fallen in the last 3 months: N Fall risk comments: 6. Patient on Blood Thinner: None 7. History of Hypertension: N 8. Opioid Therapy greater than 6 weeks: Y Opiate Contract Signed: 12/13/18 9. Risk Assessment Tool Provided: low-0 10. Functional Assessment Tool: 11. Recreational Drug Use: Past greater than 3 mos Drug Type: Tobacco Use: Current Every Day Smoker Tobacco Type: Amount or Packs/day: How Many Years: Alcohol Use: No Frequency: Quant:
--- NOTE | 2020-09-24 07:39 | HPC ---
[facility] [place] [address] PAIN MANAGEMENT CONSULTATION Name: MELLO LERMA Room #: REG [facility] Wyatt.#: [id number] Admission: 09/23/20 Attend Phys: Dena Conn Discharge: Date of : 70 Report #: [id number] THIS REPORT FOR: cc: Jaime Jaffe MD, Thomas M. MD Hocker,Dena PERDOMO ~ DATE OF SERVICE: 09/23/2020 CHIEF COMPLAINT: Hemicrania continua, constant daily headache. HISTORY OF PRESENT ILLNESS: This is a 50-year-old gentleman who returns to the pain clinic today for renewal of his medications. Today, the patient is reporting a pain score of 5/10, located in his right temporal area above his eye and frontal sinus area. He describes his pain as 5/10 as an ice pick at times causing a constant headache. Any light, noise and cold does aggravate it. The medications have been beneficial as well as being in a dark quiet room. He reports to me that he recently had a right suborbital nerve block. He did describe this to Dr. Ketan Olivier as well. It was very beneficial in controlling his pain. He reports that as soon as the procedure was completed, he had no pain and he actually cried due to the first time having been without pain in years. The patient is reporting that he will see Dr. Connor, a neurosurgeon on 10/23 for a possible placement of a supraorbital nerve stimulator. He is hopeful that this therapy will be beneficial in decreasing his pain as well as the nerve block. Therefore, he would be able to decrease his opioid medications and live with significantly less pain. Today, he would like renewal of his oxycodone, which we have found to be the most beneficial medication for him and helping control the pain currently. We have tried methadone and he did fail that trial. He reports no side effects of constipation or daytime somnolence as a result of his opioids. ALLERGIES: PENICILLIN. CURRENT LIST OF MEDICATIONS: Oxycodone 10/325 every 4 hours, indomethacin 75 mg daily, gabapentin 300 mg 4 times a day, Lexapro, aspirin and multivitamin. PQRS: 1. He denies any osteo or rheumatoid arthritis. 2. Height is 5 feet 11 inches, weight is 188, BMI is 26. 3. Vital signs 133/73, pulse is 80, respirations 14, oxygen sat is 96%. 4. Pain score is 5/10. 5. Denies dizziness, does not need help walking or standing, has not fallen in the last 3 months. 6. The patient is not on any blood thinners or medicine for hypertension. His opioid therapy is greater than 6 weeks, so he does have an opioid signed contract on our chart. Risk assessment is low. Functional assessment is 51/70. 7. Recreational drug use in the past. He has stopped using any marijuana [address] [address] PAIN MANAGEMENT CONSULTATION Name: MELLO LERMA Room #: REG KECIA Powell#: [id number] Admission: 09/23/20 Attend Phys: Dena Conn Discharge: Date of : 70 Report #: [id number] products. He does continue to smoke a pack a day and does not drink alcohol. According to the prescription monitoring system, he is due to fill his medications tomorrow. His Morphine mEq is 96 MME. He is followed here in the pain clinic on a monthly basis. There is a drug screen on the chart that was discussed with him in previous visits. PHYSICAL EXAMINATION: GENERAL: This is alert and orientated 50-year-old gentleman, who is more upbeat today than he has been in the past, rating his pain score today at 5/10. HEENT: Normocephalic, atraumatic. Extraocular eye muscles are intact. Tenderness above his right eye. He does have photophobia. Complains of a headache "ice cream freeze" headache. IMPRESSION: 1. Hemicrania continua. 2. Severe depression. 3. Complicated medication management under terms of written opioid agreement. 4. Chronic intractable pain and opioid dependency. PLAN: 1. We discussed treatment options with the patient today. He is very hopeful that the suborbital nerve stimulator will be beneficial in decreasing his pain and therefore, he will be able to decrease some of his opioid medications. I did discuss that occasionally we need to wait for advances in medical treatments to find therapies that are beneficial for him and he is thankful that this may be an opportunity for him to finally decrease some of his discomfort that he has been feeling. He does continue to work on a daily basis and continued pain and he is grateful for the medications. He is hopeful within the next month he will have this nerve stimulator placed. 2. We will have Dr. Ketan Olivier continue his oxycodone , #180. This will be sent electronically on 09/[address] Ketan Olivier for 1-month supply. 3. We encouraged the patient to send records from Dr. Connor's appointment and keep us posted on his treatments. Time spent with the patient in consultation, reviewing recent studies and clinical notes, physical examination and correlation of physical findings of medical documentation to determine possible treatments, 20 minutes. Time spent in preparation for appointment reviewing, prescription monitoring system review of previous records and proposed options of treatment and reviewing medications, 8 minutes. Time spent preparing and sending electronic prescriptions with collaborated physician and documentation of visit and plan of treatment, 5 minutes. [facility] [address] [place] [address] PAIN MANAGEMENT CONSULTATION Name: MELLO LERMA Room #: REG KECIA Powell#: [id number] Admission: 09/23/20 Attend Phys: Dena Conn Discharge: Date of : 70 Report #: [id number] Time spent 33 minutes. <ELECTRONICALLY SIGNED> By: Dena Conn 09/24/20 0739 [id number] Dena Conn /nt
== END ==
LOC: PAIN 08:59
PROVIDERS: ATTEND Clinical Nurse Specialist Adult Health
DX: G44.039 Episodic paroxysmal hemicrania, not intractable (principal)

== ENCOUNTER → 2020-10-21 | Outpatient (CLI) | payer BC, OTHER ==
[~2020-10-21] VITALS: Ht 180.3 cm; Wt 86.2 kg
[2020-10-21 12:36] VITALS: BP 113/77
--- NOTE | 2020-10-21 12:39 | NUR ---
Pain Clinic Assessment: 1. History of Osteoarthritis: NONE History of Rheumatoid Arthritis: NONE 2. Height: 5 ft. 11 in. 180.3 cm. Weight: 190.0 lb. oz. 86.184 kg. Patient's BMI: 26.5 3. Vital Signs: BP: 113/77 Pulse: 75 Resp: 16 Temp: 02 Sat: 96 ECG Mon: 4. Pain Intensity: 4 5. Fall Risk: Dizziness: N Needs help standing or walking: N Fallen in the last 3 months: N Fall risk comments: 6. Patient on Blood Thinner: None 7. History of Hypertension: N 8. Opioid Therapy greater than 6 weeks: Y Opiate Contract Signed: 12/13/18 9. Risk Assessment Tool Provided: low-0 10. Functional Assessment Tool: 11. Recreational Drug Use: Past greater than 3 mos Drug Type: Tobacco Use: Current Every Day Smoker Tobacco Type: Cigarettes Amount or Packs/day: 1 PACK How Many Years: Alcohol Use: No Frequency: Quant:
--- NOTE | 2020-10-22 09:01 | HPC ---
[facility] [place] [address] PAIN MANAGEMENT CONSULTATION Name: MELLO LERMA Room #: REG CL MHi.#: [id number] Admission: 10/21/20 Attend Phys: Dena Conn Discharge: Date of : 70 Report #: [id number] THIS REPORT FOR: cc: Jaime Jaffe MD, Thomas M. MD Hocker,Dena PERDOMO ~ DATE OF SERVICE: 10/21/2020 CHIEF COMPLAINT: Hemicrania continua, chronic daily headaches. HISTORY OF PRESENT ILLNESS: This is a 50-year-old gentleman who returns to the pain clinic today for renewal of his medications. He is well known to the pain clinic and has seen Dr. Ketan Olivier for several years for his ongoing headache that he reports as "ice pick" sensation in his right temporal area above his eye as well as his frontal sinus area. Today, he is stating his pain is a 4/10. It is exacerbated by light, noise and cold. It is alleviated with dark rooms and his medication. The patient reports going to have a followup with Dr. Connor on Monday. At that time, he is hopeful to have a date for his suborbital nerve stimulator. The patient reports the blocks that he had done were beneficial in decreasing his pain and he is hopeful to have the next step taken fairly soon. He is requesting to see Dr. Olivier at his next monthly visit, so he may go over what he is seen with Dr. Connor. The patient denies any constipation or daytime somnolence with his opioids. He has gained a few pounds again since our last visit. ALLERGIES: PENICILLIN. CURRENT LIST OF MEDICATIONS: Oxycodone 10/325 p.r.n., indomethacin, gabapentin, Lexapro, aspirin and multivitamin. PQRS: 1. He denies any osteoarthritis or rheumatoid arthritis. 2. Height is 5 feet 11 inches, weight is 190 and BMI is 26. 3. Vital signs 113/77, pulse is 75, respirations 16, oxygen sat is 96%. 4. Pain score is 4/10. 5. Denies dizziness, does not need help walking or standing, has not fallen in the last 3 months. 6. The patient is not on any blood thinners or medication for high blood pressure. 7. Opioid therapy is greater than 6 weeks; therefore, an opioid signed contract is on the chart. Risk assessment is low. Functional assessment is 51/70. 8. Recreational drug use in the past. He is a current smoker of a pack of cigarettes a day and does not drink alcohol. According to the prescription monitoring system, he is due to fill his medications today, filling them in a timely fashion. His morphine [address] [address] PAIN MANAGEMENT CONSULTATION Name: LERMAMELLO Room #: REG CLJose Cruz Powell#: [id number] Admission: 10/21/20 Attend Phys: Dena Conn Discharge: Date of : 70 Report #: [id number] milliequivalent is 96 MMEs per day. There is a drug screen on the chart from previous visit. He does have a medical marijuana card. PHYSICAL EXAMINATION: GENERAL: This is alert and orientated 50-year-old gentleman who appears his stated age, placing his current pain score today at 4/10. HEENT: Normocephalic, atraumatic. Extraocular eye muscles are intact. He has tenderness above his right eye with photosensitivity present today. IMPRESSION: 1. Hemicrania continua. 2. Severe depression. 3. Chronic opioid use under terms of written agreement. 4. Opioid dependency. We reviewed the fact that opiate medications are being used to provide analgesia adequate to support activities of daily living, not attempting to achieve a specific pain score on the 0-10 Visual Analog Scale. The current opiate medications are providing sufficient analgesia to allow the patient to participate in activities of daily living. The patient is not exhibiting any aberrant behavior suggestive of drug diversion. The patient is not having any adverse reactions to medications. The patient is not suffering from daytime somnolence or mental acuity changes. The patient is managing opiate-induced constipation with appropriate [id number]-vpyrvar agents and dietary considerations. The patient was counseled on concern for caution with operating a motor vehicle while using opiate medications. PLAN: 1. We discussed treatment options with the patient today. The patient is hopeful that his appointment on Monday with Dr. Connor will set a date for suborbital nerve stimulator. He will report back to us when he has a surgical date. We will make an appointment with Dr. Ketan Olivier as well. 2. We will continue him on his oxycodone , #180. This will be sent electronically by Dr. Andre who is covering for Dr. Ketan Olivier today. 3. I will continue him on his Lexapro 20 mg 1 tablet a day, #30 with 5 additional refills sent to his pharmacy. At his next visit, he will need another prescription for his indomethacin and gabapentin. Time spent with the patient in consultation, reviewing recent studies and clinical notes, physical examination and correlation of findings and medical documentation to determine treatment options, 10 minutes. Time spent in preparation for appointment reviewing prescription monitoring system, reviewing previous records and proposed treatment options and reviewing current medications, [address] [address] PAIN MANAGEMENT CONSULTATION Name: MELLO LERMA Room #: REG [facility] CharleeR.#: [id number] Admission: 10/21/20 Attend Phys: Dena Conn Discharge: Date of : 70 Report #: [id number] Time spent preparing and sending electronic prescriptions with collaborating physician, Dr. Andre, who is covering for Dr. Ketan Olivier and documentation of visit and plan of care, 7 minutes. Total time spent 22 minutes. <ELECTRONICALLY SIGNED> By: Dena Conn 10/22/20 0901 [id number] 1957 Dena Conn /nt
== END ==
LOC: PAIN 09:07
PROVIDERS: ATTEND Clinical Nurse Specialist Adult Health
DX: G44.51 Hemicrania continua (principal); F32.9 Major depressive disorder, single episode, unspecified; F11.20 Opioid dependence, uncomplicated; Z88.8 Allergy status to other drugs, medicaments and biological substances; Z79.899 Other long term (current) drug therapy

== ENCOUNTER → 2020-11-16 | Outpatient (CLI) | payer BC, OTHER ==
[~2020-11-16] VITALS: Ht 180.3 cm; Wt 86.2 kg
[2020-11-16 11:01] VITALS: BP 135/75
--- NOTE | 2020-11-16 11:03 | NUR ---
Pain Clinic Assessment: 1. History of Osteoarthritis: NONE History of Rheumatoid Arthritis: NONE 2. Height: 5 ft. 11 in. 180.3 cm. Weight: 190.0 lb. oz. 86.184 kg. Patient's BMI: 26.5 3. Vital Signs: BP: 135/75 Pulse: 82 Resp: 18 Temp: 02 Sat: 96 ECG Mon: 4. Pain Intensity: 7 5. Fall Risk: Dizziness: N Needs help standing or walking: N Fallen in the last 3 months: N Fall risk comments: 6. Patient on Blood Thinner: None 7. History of Hypertension: N 8. Opioid Therapy greater than 6 weeks: Y Opiate Contract Signed: 12/13/18 9. Risk Assessment Tool Provided: low-0 10. Functional Assessment Tool: 11. Recreational Drug Use: Past greater than 3 mos Drug Type: Tobacco Use: Current Every Day Smoker Tobacco Type: Amount or Packs/day: How Many Years: Alcohol Use: No Frequency: Quant:
== END ==
LOC: PAIN 10:48
PROVIDERS: ATTEND Clinical Nurse Specialist Adult Health
DX: G44.51 Hemicrania continua (principal); G44.52 New daily persistent headache (NDPH); F32.9 Major depressive disorder, single episode, unspecified; F11.20 Opioid dependence, uncomplicated; G89.29 Other chronic pain; F17.200 Nicotine dependence, unspecified, uncomplicated; Z88.8 Allergy status to other drugs, medicaments and biological substances; Z79.899 Other long term (current) drug therapy

== ENCOUNTER → 2020-12-17 | Outpatient (CLI) | payer BC, OTHER ==
[~2020-12-17] VITALS: Ht 180.3 cm; Wt 86.2 kg
[2020-12-17 09:27] VITALS: BP 1244/75
--- NOTE | 2020-12-17 09:29 | NUR ---
Pain Clinic Assessment: 1. History of Osteoarthritis: NONE History of Rheumatoid Arthritis: NONE 2. Height: 5 ft. 11 in. 180.3 cm. Weight: 190.0 lb. oz. 86.184 kg. Patient's BMI: 26.5 3. Vital Signs: BP: 1244/75 Pulse: 77 Resp: 16 Temp: 02 Sat: 95 ECG Mon: 4. Pain Intensity: 5 5. Fall Risk: Dizziness: N Needs help standing or walking: N Fallen in the last 3 months: N Fall risk comments: 6. Patient on Blood Thinner: None 7. History of Hypertension: N 8. Opioid Therapy greater than 6 weeks: Y Opiate Contract Signed: 12/13/18 9. Risk Assessment Tool Provided: low-0 10. Functional Assessment Tool: / 11. Recreational Drug Use: Past greater than 3 mos Drug Type: Tobacco Use: Current Every Day Smoker Tobacco Type: Cigarettes Amount or Packs/day: 1 PACK How Many Years: Alcohol Use: No Frequency: Quant:
[2020-12-17 10:02] VITALS: BP 12/75
== END ==
LOC: PAIN 07:06
PROVIDERS: ATTEND Clinical Nurse Specialist Adult Health
DX: G44.51 Hemicrania continua (principal); F32.9 Major depressive disorder, single episode, unspecified; Z79.01 Long term (current) use of anticoagulants; Z79.899 Other long term (current) drug therapy

== ENCOUNTER → 2021-01-18 | Outpatient (CLI) | payer BC, OTHER ==
[~2021-01-18] VITALS: Ht 180.3 cm; Wt 87.5 kg
[2021-01-18 13:27] VITALS: BP 113/73
--- NOTE | 2021-01-18 13:38 | NUR ---
Pain Clinic Assessment: 1. History of Osteoarthritis: NONE History of Rheumatoid Arthritis: NONE 2. Height: 5 ft. 11 in. 180.3 cm. Weight: 192.8 lb. oz. 87.454 kg. Patient's BMI: 26.9 3. Vital Signs: BP: 113/73 Pulse: 70 Resp: 14 Temp: 02 Sat: 96 ECG Mon: 4. Pain Intensity: 7 5. Fall Risk: Dizziness: N Needs help standing or walking: N Fallen in the last 3 months: N Fall risk comments: 6. Patient on Blood Thinner: None 7. History of Hypertension: N 8. Opioid Therapy greater than 6 weeks: Y Opiate Contract Signed: 12/13/18 9. Risk Assessment Tool Provided: low-0 10. Functional Assessment Tool: 11. Recreational Drug Use: Past greater than 3 mos Drug Type: Tobacco Use: Current Every Day Smoker Tobacco Type: Amount or Packs/day: How Many Years: Alcohol Use: No Frequency: Quant:
== END ==
LOC: PAIN 01-14 10:05
PROVIDERS: ATTEND Clinical Nurse Specialist Adult Health
DX: G44.51 Hemicrania continua (principal); G89.4 Chronic pain syndrome; F32.9 Major depressive disorder, single episode, unspecified; F17.200 Nicotine dependence, unspecified, uncomplicated; Z79.891 Long term (current) use of opiate analgesic; Z79.899 Other long term (current) drug therapy

== ENCOUNTER → 2021-02-15 | Outpatient (CLI) | payer BC, OTHER ==
[~2021-02-15] VITALS: Ht 180.3 cm; Wt 87.9 kg
[2021-02-15 10:33] VITALS: BP 119/79
--- NOTE | 2021-02-15 10:41 | NUR ---
Pain Clinic Assessment: 1. History of Osteoarthritis: NONE History of Rheumatoid Arthritis: NONE 2. Height: 5 ft. 11 in. 180.3 cm. Weight: 193.8 lb. oz. 87.907 kg. Patient's BMI: 27.0 3. Vital Signs: BP: 119/79 Pulse: 72 Resp: 14 Temp: 02 Sat: 97 ECG Mon: 4. Pain Intensity: 7 5. Fall Risk: Dizziness: N Needs help standing or walking: N Fallen in the last 3 months: N Fall risk comments: 6. Patient on Blood Thinner: None 7. History of Hypertension: N 8. Opioid Therapy greater than 6 weeks: Y Opiate Contract Signed: 12/13/18 9. Risk Assessment Tool Provided: low-0 10. Functional Assessment Tool: 11. Recreational Drug Use: Past greater than 3 mos Drug Type: Tobacco Use: Current Every Day Smoker Tobacco Type: Cigarettes Amount or Packs/day: 1PK/D How Many Years: Alcohol Use: No Frequency: Quant:
== END ==
LOC: PAIN 07:02
PROVIDERS: ATTEND Anesthesiology Pain Medicine
DX: G89.29 Other chronic pain (principal); G44.51 Hemicrania continua; F17.200 Nicotine dependence, unspecified, uncomplicated; Z68.29 Body mass index [BMI] 29.0-29.9, adult; Z88.0 Allergy status to penicillin; Z79.891 Long term (current) use of opiate analgesic; Z79.899 Other long term (current) drug therapy

== ENCOUNTER → 2021-03-16 | Outpatient (CLI) | payer BC, OTHER ==
[~2021-03-16] VITALS: Ht 180.3 cm; Wt 89.4 kg
[~2021-03-16] MED LIST changes: +CYMBALTA30 MG PO
[2021-03-16 09:24] VITALS: BP 125/76
--- NOTE | 2021-03-16 09:37 | NUR ---
Pain Clinic Assessment: 1. History of Osteoarthritis: NONE History of Rheumatoid Arthritis: NONE 2. Height: 5 ft. 11 in. 180.3 cm. Weight: 197.0 lb. oz. 89.359 kg. Patient's BMI: 27.5 3. Vital Signs: BP: 125/76 Pulse: 69 Resp: 16 Temp: 02 Sat: 97 ECG Mon: 4. Pain Intensity: 6 5. Fall Risk: Dizziness: N Needs help standing or walking: N Fallen in the last 3 months: N Fall risk comments: 6. Patient on Blood Thinner: None 7. History of Hypertension: N 8. Opioid Therapy greater than 6 weeks: Y Opiate Contract Signed: 12/13/18 9. Risk Assessment Tool Provided: low-0 10. Functional Assessment Tool: 11. Recreational Drug Use: Past greater than 3 mos Drug Type: Tobacco Use: Current Every Day Smoker Tobacco Type: Amount or Packs/day: How Many Years: Alcohol Use: No Frequency: Quant:
== END ==
LOC: PAIN 08:37
PROVIDERS: ATTEND Clinical Nurse Specialist Adult Health
DX: G44.51 Hemicrania continua (principal); F32.89 Other specified depressive episodes; F11.90 Opioid use, unspecified, uncomplicated

== ENCOUNTER → 2021-04-12 | Outpatient (CLI) | payer BC, OTHER ==
[~2021-04-12] VITALS: Ht 180.3 cm; Wt 88.6 kg
[~2021-04-12] MED LIST changes: +CYMBALTA60 MG PO
[2021-04-12 12:37] VITALS: BP 122/75
--- NOTE | 2021-04-12 12:48 | NUR ---
Pain Clinic Assessment: 1. History of Osteoarthritis: NONE History of Rheumatoid Arthritis: NONE 2. Height: 5 ft. 11 in. 180.3 cm. Weight: 195.4 lb. oz. 88.633 kg. Patient's BMI: 27.3 3. Vital Signs: BP: 122/75 Pulse: 72 Resp: 20 Temp: 02 Sat: 98 ECG Mon: 4. Pain Intensity: 4 5. Fall Risk: Dizziness: N Needs help standing or walking: N Fallen in the last 3 months: N Fall risk comments: 6. Patient on Blood Thinner: None 7. History of Hypertension: N 8. Opioid Therapy greater than 6 weeks: Y Opiate Contract Signed: 12/13/18 9. Risk Assessment Tool Provided: low-0 10. Functional Assessment Tool: 11. Recreational Drug Use: Past greater than 3 mos Drug Type: Tobacco Use: Current Every Day Smoker Tobacco Type: Amount or Packs/day: How Many Years: Alcohol Use: No Frequency: Quant:
== END ==
LOC: PAIN 09:00
PROVIDERS: ATTEND Clinical Nurse Specialist Adult Health
DX: G44.51 Hemicrania continua (principal); G89.29 Other chronic pain; F32.89 Other specified depressive episodes; Z79.899 Other long term (current) drug therapy; Z88.0 Allergy status to penicillin

== ENCOUNTER → 2021-05-10 | Outpatient (CLI) | payer BC, OTHER ==
[~2021-05-10] VITALS: Ht 180.3 cm; Wt 91.6 kg
[~2021-05-10] MED LIST changes: +MIRTAZAPINE7.5 MG PO
[2021-05-10 13:26] VITALS: BP 137/91
== END ==
LOC: PAIN 07:56
PROVIDERS: ATTEND Anesthesiology Pain Medicine
DX: F32.89 Other specified depressive episodes (principal); R51.9 Headache, unspecified; Z88.0 Allergy status to penicillin; Z79.82 Long term (current) use of aspirin; Z79.899 Other long term (current) drug therapy

== ENCOUNTER → 2021-06-07 | Outpatient (CLI) | payer BC, OTHER ==
[~2021-06-07] VITALS: Ht 180.3 cm; Wt 88.1 kg
[2021-06-07 10:58] VITALS: BP 153/102
--- NOTE | 2021-06-07 11:14 | NUR ---
Pain Clinic Assessment: 1. History of Osteoarthritis: NONE History of Rheumatoid Arthritis: NONE 2. Height: 5 ft. 11 in. 180.3 cm. Weight: 194.2 lb. oz. 88.089 kg. Patient's BMI: 27.1 3. Vital Signs: BP: 153/102 Pulse: 10 Resp: 20 Temp: 02 Sat: 97 ECG Mon: 4. Pain Intensity: 3 5. Fall Risk: Dizziness: N Needs help standing or walking: N Fallen in the last 3 months: N Fall risk comments: 6. Patient on Blood Thinner: None 7. History of Hypertension: N 8. Opioid Therapy greater than 6 weeks: Y Opiate Contract Signed: 12/13/18 9. Risk Assessment Tool Provided: low-0 10. Functional Assessment Tool: / 11. Recreational Drug Use: Past greater than 3 mos Drug Type: Tobacco Use: Current Every Day Smoker Tobacco Type: Amount or Packs/day: 1PK/DAY How Many Years: Alcohol Use: No Frequency: Quant:
== END ==
LOC: PAIN 09:30
PROVIDERS: ATTEND Anesthesiology Pain Medicine
DX: G44.51 Hemicrania continua (principal); Z88.0 Allergy status to penicillin; Z79.82 Long term (current) use of aspirin; Z79.899 Other long term (current) drug therapy

== ENCOUNTER → 2021-06-18 | Outpatient (CLI) | payer BC, OTHER | LOC: MRI 05-24 13:47 | PROVIDERS: ATTEND Anesthesiology Pain Medicine | DX: R51.9 Headache, unspecified (principal); J34.89 Other specified disorders of nose and nasal sinuses; Z86.73 Personal history of transient ischemic attack (TIA), and cerebral infarction without residual deficits ==

== ENCOUNTER → 2021-07-05 | Outpatient (CLI) | payer BC, OTHER ==
[~2021-07-05] VITALS: Ht 180.3 cm; Wt 97.3 kg
[~2021-07-05] MED LIST changes: +ENDOCET 2.5-321 EACH PO
[2021-07-05 09:08] VITALS: BP 127/85
--- NOTE | 2021-07-05 09:35 | NUR ---
Pain Clinic Assessment: 1. History of Osteoarthritis: NONE History of Rheumatoid Arthritis: NONE 2. Height: 5 ft. 11 in. 180.3 cm. Weight: 214.4 lb. oz. 97.251 kg. Patient's BMI: 29.9 3. Vital Signs: BP: 127/85 Pulse: 81 Resp: 16 Temp: 02 Sat: 97 ECG Mon: 4. Pain Intensity: 6 TO 7 5. Fall Risk: Dizziness: N Needs help standing or walking: N Fallen in the last 3 months: N Fall risk comments: 6. Patient on Blood Thinner: None 7. History of Hypertension: N 8. Opioid Therapy greater than 6 weeks: Y Opiate Contract Signed: 12/13/18 9. Risk Assessment Tool Provided: low-0 10. Functional Assessment Tool: 11. Recreational Drug Use: Past greater than 3 mos Drug Type: Tobacco Use: Current Every Day Smoker Tobacco Type: Cigarettes Amount or Packs/day: 1 PK/DAY How Many Years: Alcohol Use: No Frequency: Quant:
== END ==
LOC: PAIN 08:17
PROVIDERS: ATTEND Anesthesiology Pain Medicine
DX: R51.9 Headache, unspecified (principal); F32.A Depression, unspecified; Z79.82 Long term (current) use of aspirin; Z79.899 Other long term (current) drug therapy; Z88.0 Allergy status to penicillin; Z68.29 Body mass index [BMI] 29.0-29.9, adult; F17.200 Nicotine dependence, unspecified, uncomplicated; G47.00 Insomnia, unspecified

== ENCOUNTER → 2021-08-30 | Outpatient (CLI) | payer BC, OTHER ==
[~2021-08-30] VITALS: Ht 180.3 cm; Wt 91.5 kg
[~2021-08-30] MED LIST changes: +REMERON15 M2 PO
[2021-08-30 12:40] VITALS: BP 120/81
--- NOTE | 2021-08-30 12:57 | NUR ---
Pain Clinic Assessment: 1. History of Osteoarthritis: NONE History of Rheumatoid Arthritis: NONE 2. Height: 5 ft. 11 in. 180.3 cm. Weight: 201.8 lb. oz. 91.536 kg. Patient's BMI: 28.2 3. Vital Signs: BP: 120/81 Pulse: 81 Resp: 16 Temp: 02 Sat: 97 ECG Mon: 4. Pain Intensity: 5 5. Fall Risk: Dizziness: N Needs help standing or walking: N Fallen in the last 3 months: N Fall risk comments: 6. Patient on Blood Thinner: None 7. History of Hypertension: N 8. Opioid Therapy greater than 6 weeks: Y Opiate Contract Signed: 12/13/18 9. Risk Assessment Tool Provided: low-0 10. Functional Assessment Tool: 11. Recreational Drug Use: Past greater than 3 mos Drug Type: Tobacco Use: Current Every Day Smoker Tobacco Type: Cigarettes Amount or Packs/day: 1 How Many Years: Alcohol Use: No Frequency: Quant:
== END ==
LOC: PAIN 10:29
PROVIDERS: ATTEND Clinical Nurse Specialist Adult Health
DX: G89.29 Other chronic pain (principal); R51.9 Headache, unspecified; F51.05 Insomnia due to other mental disorder; J32.0 Chronic maxillary sinusitis; Z79.899 Other long term (current) drug therapy; J32.1 Chronic frontal sinusitis; Z79.82 Long term (current) use of aspirin; Z88.0 Allergy status to penicillin